=== PATIENT | male | born 1945 | race Caucasian/White ===

== ENCOUNTER 2018-10-10 12:31 | Outpatient (CLI) | payer MEDICARE ==
[~2018-10-10 12:31] MED LIST: AMIO200T54 PO; BENZ1TAB7 PO; CARV6.252 PO; EPIN0.3P17 SQ; IBUP-1984 PO; LITH450T2 PO; LORA1TAB PO; LOSA25TA96 PO; MAGN250T29 PO; PER5325T PO; PIMO2TAB3 PO; POTA99TA25 PO; RIVA20TA PO; SIMV20TA5 PO; TRAZ-219 PO; VENL150C58 PO; VIT1CAPS4 PO
== END 2018-10-10 23:59 | disposition home or self-care (01) ==
LOC: CARD DIAG 12:31
PROVIDERS: ATTEND Internal Medicine Cardiovascular Disease
DX: I08.3 Combined rheumatic disorders of mitral, aortic and tricuspid valves (principal); I48.91 Unspecified atrial fibrillation; I42.9 Cardiomyopathy, unspecified; I11.0 Hypertensive heart disease with heart failure; I50.9 Heart failure, unspecified; J44.9 Chronic obstructive pulmonary disease, unspecified; Z87.891 Personal history of nicotine dependence
CPT/HCPCS: 93306

== ENCOUNTER 2018-11-15 06:44 | Day surgery (SDC) | payer MEDICARE, OTHER ==
[2018-11-14 10:34] LABS: BASOPHILS # (AUTO) 0.1 X10'3 (0-0.2); BASOPHILS % (AUTO) 0.7 % (0-1); EOSINOPHILS # (AUTO) 0.2 X10'3 (0-0.9); EOSINOPHILS % (AUTO) 2.2 % (0-6); HEMATOCRIT 39.6 % (42.0-52.0); HEMOGLOBIN 12.9 g/dl (14.0-17.9); LYMPHOCYTES # (AUTO) 1.8 X10'3 (1.1-4.8); LYMPHOCYTES % (AUTO) 20.7 % (21-51); MEAN CORPUSCULAR HEMOGLOBIN 29.3 PG (27.0-31.0); MEAN CORPUSCULAR HGB CONC 32.6 g/dL (33.0-36.5); MEAN CORPUSCULAR VOLUME 90.1 FL (78-98); MEAN PLATELET VOLUME 6.2 FL (7.4-10.4); MONOCYTES # (AUTO) 0.8 X10'3 (0-0.9); MONOCYTES % (AUTO) 8.9 % (2-12); NEUTROPHILS # (AUTO) 5.9 X10'3 (1.8-7.7); NEUTROPHILS % (AUTO) 67.5 % (42-75); PLATELET COUNT 364 X10'3 (140-440); RED CELL DISTRIBUTION WIDTH 14.3 % (11.5-14.5); WHITE BLOOD COUNT 8.7 X10'3 (4.5-11.0)
[2018-11-14 10:40] LABS: ALBUMIN 3.9 G/DL (3.4-5.0); ANION GAP 8 (8-16); CALCIUM 9.5 MG/DL (8.5-10.1); CHLORIDE 100 MMOL/L (99-107); CREATININE 1.01 MG/DL (0.60-1.10); POTASSIUM 4.6 MMOL/L (3.5-5.1); SODIUM 135 MMOL/L (135-145); TOTAL CARBON DIOXIDE 26.8 MMOL/L (24-32); eGFR 73 ML/MIN
[2018-11-14 10:43] LABS: BLOOD UREA NITROGEN 14 MG/DL (7-18); BUN/CREATININE RATIO 13.9 (5.4-32.0); GLUCOSE 102 MG/DL (70-104)
[2018-11-14 10:44] LABS: INR 1.2 INR; PROTHROMBIN TIME 12.5 SECONDS (9.0-12.0)
[~2018-11-15] VITALS: Ht 188 cm; Wt 125.1 kg
[2018-11-15] VITALS (8 sets, daily range): BP systolic 95–126; BP diastolic 47–94
[2018-11-15] MEDS ORDERED: MIDAZolam 5mg/ml 2ml vial IV ONE (07:05)
[2018-11-15] MEDS ORDERED: normal saline 1000ml 1,000 ML IV SCH (07:05)
[2018-11-15] MEDS ORDERED: LORazepam 0.5 MG tablet PO ONE (07:05)
[2018-11-15] MEDS ORDERED: atropine 0.1mg/ml 10ml syringe IV ONE (07:05)
[2018-11-15] MEDS ORDERED: amiodarone in dextrose, iso-osm 150mg/100ml bag IV ONE (07:05)
[2018-11-15] MEDS ORDERED: CARV3.122 PO (07:17)
[2018-11-15] MEDS ORDERED: HALO50AM2 INJ (07:17)
[2018-11-15] MEDS ORDERED: PANT20TA2 PO (07:17)
[2018-11-15] MEDS ORDERED: fentaNYL/PF 50MCG/1 ML 2ML syringe IV ONE (07:20)
--- NOTE | 2018-11-15 07:48 | NUR ---
CORRECTION PT IS ON 2.0L NC WITH CO2 38, RT, LINEA AT BEDSIDE.
== END 2018-11-15 09:25 | disposition home or self-care (01) ==
LOC: SSTAY O 06:44
PROVIDERS: ATTEND Internal Medicine Cardiovascular Disease
DX: I48.92 Unspecified atrial flutter (principal); E78.5 Hyperlipidemia, unspecified; I11.0 Hypertensive heart disease with heart failure; I50.9 Heart failure, unspecified; I42.9 Cardiomyopathy, unspecified; F41.9 Anxiety disorder, unspecified; F32.9 Major depressive disorder, single episode, unspecified; I48.91 Unspecified atrial fibrillation; K21.9 Gastro-esophageal reflux disease without esophagitis; Z88.6 Allergy status to analgesic agent; Z88.8 Allergy status to other drugs, medicaments and biological substances
CPT/HCPCS: 36415; 80048; 85025; 85610; 92960; 93005; J0282; J0461; J2250; J3010; J7030

== ENCOUNTER 2019-03-29 16:23 | Emergency (ER) | payer MEDICARE, OTHER ==
[~2019-03-29] VITALS: Ht 188 cm; Wt 120.0 kg
[~2019-03-29 16:23] MED LIST changes: +AMIO200T40 PO; -AMIO200T54 PO; +ATOR20TA66 PO; +BUDE10.22 INH; +CARV3.12 PO; -CARV6.252 PO; -EPIN0.3P17 SQ; +ESCI10TA PO; +GABA-530 PO; +GABA-532 PO; +HALO1TAB PO; -IBUP-1984 PO; -LITH450T2 PO; -LORA1TAB PO; -LOSA25TA96 PO; -MAGN250T29 PO; +PANT-47 PO; -PER5325T PO; -PIMO2TAB3 PO; -POTA99TA25 PO; -SIMV20TA5 PO; +VENL150C2 PO; -VENL150C58 PO; -VIT1CAPS4 PO
[2019-03-29] MEDS ORDERED: acetaminophen 325mg tablet PO STA (16:34)
[2019-03-29] MEDS ORDERED: normal saline 1000ML IV soln IV ONE (16:35)
[2019-03-29 17:18] LABS: BASOPHILS # (AUTO) 0.2 X10'3 (0-0.2); BASOPHILS % (AUTO) 1.3 % (0-1); EOSINOPHILS % (AUTO) 0.2 % (0-6); HEMATOCRIT 41.1 % (42.0-52.0); HEMOGLOBIN 13.9 g/dl (14.0-17.9); LYMPHOCYTES # (AUTO) 1.3 X10'3 (1.1-4.8); LYMPHOCYTES % (AUTO) 10.6 % (21-51); MEAN CORPUSCULAR HEMOGLOBIN 31.3 PG (27.0-31.0); MEAN CORPUSCULAR HGB CONC 33.8 g/dL (33.0-36.5); MEAN CORPUSCULAR VOLUME 92.5 FL (78-98); MEAN PLATELET VOLUME 6.2 FL (7.4-10.4); MONOCYTES # (AUTO) 0.7 X10'3 (0-0.9); MONOCYTES % (AUTO) 5.8 % (2-12); NEUTROPHILS # (AUTO) 9.8 X10'3 (1.8-7.7); NEUTROPHILS % (AUTO) 82.1 % (42-75); PLATELET COUNT 392 X10'3 (140-440); RED BLOOD COUNT 4.44 X10'6 (4.70-6.10); RED CELL DISTRIBUTION WIDTH 13.5 % (11.5-14.5); WHITE BLOOD COUNT 11.9 X10'3 (4.5-11.0)
[2019-03-29 17:29] LABS: ALANINE AMINOTRANSFERASE 24 U/L (12-78); ALBUMIN 4.2 G/DL (3.4-5.0); ALKALINE PHOSPHATASE 98 IU/L (46-116); ANION GAP 13 (8-16); CALCIUM 9.9 MG/DL (8.5-10.1); CHLORIDE 96 MMOL/L (99-107); CREATININE 1.27 MG/DL (0.60-1.10); POTASSIUM 4.7 MMOL/L (3.5-5.1); SODIUM 133 MMOL/L (135-145); TOTAL CARBON DIOXIDE 24.1 MMOL/L (24-32); eGFR 56 ML/MIN
[2019-03-29 17:30] LABS: ASPARTATE AMINO TRANSFERASE 11 U/L (10-37); BILIRUBIN,TOTAL 0.5 MG/DL (0.1-1.0); BLOOD UREA NITROGEN 15 MG/DL (7-18); BUN/CREATININE RATIO 11.8 (5.4-32.0); GLUCOSE 116 MG/DL (70-104); TOTAL PROTEIN 8.5 G/DL (6.4-8.2)
[2019-03-29 17:31] LABS: LACTIC SEPSIS 1.4 MMOL/L (0.4-2.0)
[2019-03-29] MEDS ORDERED: LIDOcaine 2% 10ml TOPICAL JELLY (Urojet) MM ONE (17:55)
[2019-03-29 18:31] LABS: CLARITY,URINE CLEAR (Clear); COLOR,URINE YELLOW (Yellow); GLUCOSE, URINE NEGATIVE (Neg); KETONES,URINE NEGATIVE (Neg); LEUKOCYTE ESTERASE ,URINE NEGATIVE (Neg); NITRITES, URINE NEGATIVE (Neg); OCCULT BLOOD,URINE NEGATIVE (Neg); PROTEIN,URINE NEGATIVE (Neg); UROBILINOGEN,URINE 0.2 E.U/dL (0.2-1.0)
[2019-03-29 18:37] LABS: UA COLLECTION TYPE STRAIGHT CATH
--- NOTE | 2019-03-29 19:30 | NUR ---
Patient gait tested and ambulated 50+ feet before requesting to sit down. Patient did not appear short of breath with this stop. When asked why he needed to sit, he states, "I don't know." Patient rested and then ambulated back to his room. He walks with a steady gait and requires minimal, if any, assistance.
--- NOTE | 2019-03-29 19:31 | NUR ---
Spo2 100% at the end of his gait test.
[2019-03-29 20:04] VITALS: BP 151/88
== END 2019-03-29 20:26 | disposition home or self-care (01) ==
LOC: ER 16:23
DX: E51.2 Wernicke's encephalopathy (principal); R41.0 Disorientation, unspecified; R11.2 Nausea with vomiting, unspecified; F03.90 Unspecified dementia, unspecified severity, without behavioral disturbance, psychotic disturbance, mood disturbance, and anxiety; I48.91 Unspecified atrial fibrillation; I10 Essential (primary) hypertension; J44.9 Chronic obstructive pulmonary disease, unspecified; Z95.0 Presence of cardiac pacemaker; Z88.8 Allergy status to other drugs, medicaments and biological substances; Z88.5 Allergy status to narcotic agent; Z79.899 Other long term (current) drug therapy
CPT/HCPCS: 36415; 70450; 71045; 74176; 80053; 81003; 82140; 83605; 84145; 85025; 85610; 87040; 93005; 99284; P9612

== ENCOUNTER 2019-07-11 06:25 | Day surgery (SDC) | payer MEDICARE ==
[2019-07-10 13:21] LABS: BASOPHILS % (AUTO) 0.5 % (0-1); EOSINOPHILS # (AUTO) 0.2 X10'3 (0-0.9); HEMATOCRIT 33.6 % (42.0-52.0); HEMOGLOBIN 11.6 g/dl (14.0-17.9); LYMPHOCYTES # (AUTO) 1.8 X10'3 (1.1-4.8); LYMPHOCYTES % (AUTO) 20.2 % (21-51); MEAN CORPUSCULAR HEMOGLOBIN 32.3 PG (27.0-31.0); MEAN CORPUSCULAR HGB CONC 34.6 g/dL (33.0-36.5); MEAN CORPUSCULAR VOLUME 93.4 FL (78-98); MEAN PLATELET VOLUME 6.1 FL (7.4-10.4); MONOCYTES # (AUTO) 1.1 X10'3 (0-0.9); MONOCYTES % (AUTO) 11.7 % (2-12); NEUTROPHILS % (AUTO) 65.6 % (42-75); PLATELET COUNT 370 X10'3 (140-440); WHITE BLOOD COUNT 9.1 X10'3 (4.5-11.0)
[2019-07-10 13:24] LABS: ALBUMIN 3.9 G/DL (3.4-5.0); ANION GAP 10 (8-16); CHLORIDE 92 MMOL/L (99-107); CREATININE 1.24 MG/DL (0.60-1.10); SODIUM 126 MMOL/L (135-145); TOTAL CARBON DIOXIDE 24.4 MMOL/L (24-32); eGFR 57 ML/MIN
[2019-07-10 13:27] LABS: BLOOD UREA NITROGEN 18 MG/DL (7-18); BUN/CREATININE RATIO 14.5 (5.4-32.0); CALCIUM 9.9 MG/DL (8.5-10.1); GLUCOSE 102 MG/DL (70-104)
[2019-07-11] VITALS (14 sets, daily range): BP systolic 100–131; BP diastolic 69–94
[~2019-07-11] VITALS: Ht 188 cm; Wt 122.4 kg
[~2019-07-11 06:25] MED LIST changes: -AMIO200T40 PO; +AMIO200T61 PO
[2019-07-11] MEDS ORDERED: amiodarone 150mg/dext, iso-os 100 ML IV ONE (06:50)
[2019-07-11] MEDS ORDERED: normal saline 1000ml 1,000 ML IV SCH (06:50)
[2019-07-11] MEDS ORDERED: diphenhydrAMINE 25mg capsule PO ONE (06:50)
[2019-07-11] MEDS ORDERED: morphine 10mg/ml inj. IV ONE (06:55)
[2019-07-11] MEDS ORDERED: MIDAZolam 5mg/ml 2ml vial IV ONE (06:55)
[2019-07-11] MEDS ORDERED: LORazepam 0.5 MG tablet PO ONE (06:55)
[2019-07-11] MEDS ORDERED: atropine 0.1mg/ml 10ml syringe IV ONE (06:55)
[2019-07-11] MEDS ORDERED: EPIN0.3P3 (07:06)
[2019-07-11] MEDS ORDERED: PANT20TA2 PO (07:06)
[2019-07-11] MEDS ORDERED: HALO5AMP2 PO (07:06)
[2019-07-11] MEDS ORDERED: LISI2.5T2 PO (07:06)
[2019-07-11] MEDS ORDERED: SPIR25TA5 PO (07:06)
[2019-07-11] MEDS ORDERED: fentaNYL/PF 50MCG/1 ML 2ML syringe IV ONE (07:10)
== END 2019-07-11 10:15 | disposition home or self-care (01) ==
LOC: SSTAY O 06:25
PROVIDERS: ATTEND Internal Medicine Cardiovascular Disease
DX: I48.19 Other persistent atrial fibrillation (principal); E78.5 Hyperlipidemia, unspecified; I11.0 Hypertensive heart disease with heart failure; I50.9 Heart failure, unspecified; G47.30 Sleep apnea, unspecified; Z79.899 Other long term (current) drug therapy
CPT/HCPCS: 36415; 80048; 85025; 85610; 92960; 93005; J0282; J0461; J2250; J3010; Q0163; J7030

== ENCOUNTER 2019-07-12 09:55 | Emergency (ER) | payer MEDICARE ==
[~2019-07-12] VITALS: Ht 188 cm; Wt 90.8 kg
[~2019-07-12 09:55] MED LIST changes: -ATOR20TA66 PO; -BUDE10.22 INH; +EPIN0.3P3; -GABA-530 PO; -GABA-532 PO; -HALO1TAB PO; +HALO5AMP2 PO; +LISI2.5T2 PO; +PANT20TA2 PO; +SPIR25TA5 PO; -TRAZ-219 PO
[2019-07-12 11:19] LABS: BASOPHILS # (AUTO) 0.1 X10'3 (0-0.2); BASOPHILS % (AUTO) 0.6 % (0-1); EOSINOPHILS # (AUTO) 0.2 X10'3 (0-0.9); HEMATOCRIT 34.3 % (42.0-52.0); HEMOGLOBIN 11.7 g/dl (14.0-17.9); LYMPHOCYTES # (AUTO) 1.3 X10'3 (1.1-4.8); LYMPHOCYTES % (AUTO) 14.3 % (21-51); MEAN CORPUSCULAR HGB CONC 34.1 g/dL (33.0-36.5); MEAN CORPUSCULAR VOLUME 93.7 FL (78-98); MONOCYTES # (AUTO) 1.1 X10'3 (0-0.9); NEUTROPHILS # (AUTO) 6.5 X10'3 (1.8-7.7); NEUTROPHILS % (AUTO) 71.1 % (42-75); PLATELET COUNT 367 X10'3 (140-440); RED BLOOD COUNT 3.66 X10'6 (4.70-6.10); RED CELL DISTRIBUTION WIDTH 14.4 % (11.5-14.5); WHITE BLOOD COUNT 9.2 X10'3 (4.5-11.0)
[2019-07-12 11:27] LABS: ALANINE AMINOTRANSFERASE 19 U/L (12-78); ALBUMIN 3.9 G/DL (3.4-5.0); ALBUMIN/GLOBULIN RATIO 0.9 (1.1-1.5); ALKALINE PHOSPHATASE 87 IU/L (46-116); ANION GAP 8 (8-16); ASPARTATE AMINO TRANSFERASE 25 U/L (10-37); BILIRUBIN,TOTAL 0.4 MG/DL (0.1-1.0); BLOOD UREA NITROGEN 18 MG/DL (7-18); CALCIUM 9.5 MG/DL (8.5-10.1); CHLORIDE 95 MMOL/L (99-107); CREATININE 1.29 MG/DL (0.60-1.10); PARTIAL THROMBOPLASTIN TIME 39 SECONDS (22-32); POTASSIUM 5.4 MMOL/L (3.5-5.1); SODIUM 130 MMOL/L (135-145); TOTAL CARBON DIOXIDE 26.7 MMOL/L (24-32); TOTAL PROTEIN 8.1 G/DL (6.4-8.2); eGFR 55 ML/MIN
[2019-07-12 11:34] LABS: MAGNESIUM 1.9 MG/DL (1.5-2.4)
[2019-07-12 11:38] LABS: GLUCOSE 101 MG/DL (70-104)
--- NOTE | 2019-07-12 11:46 | NUR ---
pacemaker interrogated, waiting results.
[2019-07-12 12:18] VITALS: BP 147/115
== END 2019-07-12 12:27 | disposition home or self-care (01) ==
LOC: ER 09:56
DX: I48.91 Unspecified atrial fibrillation (principal); I10 Essential (primary) hypertension; F03.90 Unspecified dementia, unspecified severity, without behavioral disturbance, psychotic disturbance, mood disturbance, and anxiety; Z87.891 Personal history of nicotine dependence; Z95.0 Presence of cardiac pacemaker; Z88.5 Allergy status to narcotic agent; Z88.8 Allergy status to other drugs, medicaments and biological substances; Z79.899 Other long term (current) drug therapy
CPT/HCPCS: 36415; 71045; 80053; 83735; 83880; 84484; 85025; 85610; 85730; 93005; 99284

== ENCOUNTER 2019-09-28 09:10 | Emergency (ER) | payer MEDICARE ==
[~2019-09-28] VITALS: Ht 188 cm; Wt 127.0 kg
--- NOTE | 2019-09-28 09:27 | NUR ---
Patient resting in bed, denies CP, N/V. Patient on 2L NC from EMS. Patient has intermitten cough, non priductive. [facility] Blood collected and sent to lab. Patient don gown and on pvc monitor.
[2019-09-28 09:38] LABS: BASOPHILS % (AUTO) 0.7 % (0-1); EOSINOPHILS # (AUTO) 0.1 X10'3 (0-0.9); EOSINOPHILS % (AUTO) 1.8 % (0-6); HEMATOCRIT 36.2 % (42.0-52.0); HEMOGLOBIN 12.2 g/dl (14.0-17.9); LYMPHOCYTES # (AUTO) 1.1 X10'3 (1.1-4.8); LYMPHOCYTES % (AUTO) 16.8 % (21-51); MEAN CORPUSCULAR HEMOGLOBIN 31.5 PG (27.0-31.0); MEAN CORPUSCULAR HGB CONC 33.9 g/dL (33.0-36.5); MEAN CORPUSCULAR VOLUME 93.1 FL (78-98); MEAN PLATELET VOLUME 6.1 FL (7.4-10.4); MONOCYTES # (AUTO) 0.9 X10'3 (0-0.9); MONOCYTES % (AUTO) 14.4 % (2-12); NEUTROPHILS # (AUTO) 4.2 X10'3 (1.8-7.7); NEUTROPHILS % (AUTO) 66.3 % (42-75); PLATELET COUNT 264 X10'3 (140-440); RED BLOOD COUNT 3.88 X10'6 (4.70-6.10); RED CELL DISTRIBUTION WIDTH 13.3 % (11.5-14.5); WHITE BLOOD COUNT 6.3 X10'3 (4.5-11.0)
[2019-09-28 09:52] LABS: ALANINE AMINOTRANSFERASE 24 U/L (12-78); ALBUMIN 3.7 G/DL (3.4-5.0); ALKALINE PHOSPHATASE 91 IU/L (46-116); ANION GAP 8 (8-16); ASPARTATE AMINO TRANSFERASE 20 U/L (10-37); BILIRUBIN,TOTAL 0.2 MG/DL (0.1-1.0); BLOOD UREA NITROGEN 19 MG/DL (7-18); BUN/CREATININE RATIO 16.1 (5.4-32.0); CALCIUM 8.6 MG/DL (8.5-10.1); CHLORIDE 101 MMOL/L (99-107); CREATININE 1.18 MG/DL (0.60-1.10); POTASSIUM 5.4 MMOL/L (3.5-5.1); SODIUM 135 MMOL/L (135-145); TOTAL CARBON DIOXIDE 25.7 MMOL/L (24-32); TOTAL PROTEIN 7.3 G/DL (6.4-8.2); eGFR 61 ML/MIN
[2019-09-28 09:53] LABS: GLUCOSE 102 MG/DL (70-104)
[2019-09-28] MEDS ORDERED: albuterol 2.5 MG/3 ML nebule NEB ONE (10:10)
[2019-09-28] MEDS ORDERED: methylPREDNISolone sod succ 125mg/2ml vial IV ONE (10:10)
--- NOTE | 2019-09-28 10:18 | NUR ---
PA Belle removed oxygen NC, patient maintaining SPO2 96%.
--- NOTE | 2019-09-28 10:18 | NUR ---
arrived and at bedside. RT at bedside.
--- NOTE | 2019-09-28 11:19 | NUR ---
Patient reports breathing improved from breathing treatment and medication. Patient sitting in bed comfortable. Denies any CP or N/V at this time.
[2019-09-28] MEDS ORDERED: ipratropium/albuterol 3ml nebule NEB ONE (11:20)
--- NOTE | 2019-09-28 11:33 | NUR ---
RT at bedside.
[2019-09-28] MEDS ORDERED: PRED20TA PO (12:11)
[2019-09-28] MEDS ORDERED: AZIT-63 PO (12:11)
[2019-09-28] MEDS ORDERED: TAM75C PO (12:12)
[2019-09-28] MEDS ORDERED: azithromycin 250mg tablet PO ONE (12:15)
[2019-09-28 12:27] VITALS: BP 129/68
== END 2019-09-28 12:28 | disposition home or self-care (01) ==
LOC: ER 09:10
DX: J44.1 Chronic obstructive pulmonary disease with (acute) exacerbation (principal); I48.91 Unspecified atrial fibrillation; I10 Essential (primary) hypertension; F03.90 Unspecified dementia, unspecified severity, without behavioral disturbance, psychotic disturbance, mood disturbance, and anxiety; Z88.8 Allergy status to other drugs, medicaments and biological substances; Z88.6 Allergy status to analgesic agent; Z79.2 Long term (current) use of antibiotics; Z79.899 Other long term (current) drug therapy; Z95.0 Presence of cardiac pacemaker
CPT/HCPCS: 36415; 71045; 80053; 83880; 84484; 85025; 87502; 87503; 93005; 94640; 96374; 99284; J2930; 94760

== ENCOUNTER 2019-10-26 09:53 | Inpatient (IN) | payer MEDICARE, OTHER ==
[~2019-10-26] VITALS: Ht 188 cm; Wt 125.0 kg
[~2019-10-26 09:53] MED LIST changes: -EPIN0.3P3; +EPIN0.3P3 IM; +PRED20TA PO
[2019-10-26 10:27] LABS: BASOPHILS # (AUTO) 0.1 X10'3 (0-0.2); BASOPHILS % (AUTO) 1.2 % (0-1); EOSINOPHILS # (AUTO) 0.1 X10'3 (0-0.9); EOSINOPHILS % (AUTO) 1.8 % (0-6); HEMATOCRIT 38.7 % (42.0-52.0); HEMOGLOBIN 13.4 g/dl (14.0-17.9); LYMPHOCYTES # (AUTO) 1.9 X10'3 (1.1-4.8); LYMPHOCYTES % (AUTO) 27.5 % (21-51); MEAN CORPUSCULAR HGB CONC 34.5 g/dL (33.0-36.5); MEAN CORPUSCULAR VOLUME 92.8 FL (78-98); MEAN PLATELET VOLUME 5.9 FL (7.4-10.4); MONOCYTES # (AUTO) 0.9 X10'3 (0-0.9); MONOCYTES % (AUTO) 13.1 % (2-12); NEUTROPHILS # (AUTO) 3.8 X10'3 (1.8-7.7); NEUTROPHILS % (AUTO) 56.4 % (42-75); PLATELET COUNT 490 X10'3 (140-440); RED BLOOD COUNT 4.18 X10'6 (4.70-6.10); RED CELL DISTRIBUTION WIDTH 13.6 % (11.5-14.5); WHITE BLOOD COUNT 6.7 X10'3 (4.5-11.0)
[2019-10-26 10:39] LABS: ALANINE AMINOTRANSFERASE 21 U/L (12-78); ALBUMIN 4.1 G/DL (3.4-5.0); ALKALINE PHOSPHATASE 98 IU/L (46-116); ANION GAP 8 (8-16); CALCIUM 9.7 MG/DL (8.5-10.1); CHLORIDE 100 MMOL/L (99-107); POTASSIUM 5.3 MMOL/L (3.5-5.1); SODIUM 135 MMOL/L (135-145); TOTAL CARBON DIOXIDE 26.8 MMOL/L (24-32); eGFR 60 ML/MIN
[2019-10-26 10:40] LABS: ASPARTATE AMINO TRANSFERASE 18 U/L (10-37); BILIRUBIN,TOTAL 0.3 MG/DL (0.1-1.0); BLOOD UREA NITROGEN 18 MG/DL (7-18); GLUCOSE 98 MG/DL (70-104); TOTAL PROTEIN 8.1 G/DL (6.4-8.2)
[2019-10-26] MEDS ORDERED: regadenoson 0.4mg/5ml syringe IV PRN (12:10)
[2019-10-26] MEDS ORDERED: metoprolol tartrate 1mg/ml inj IV PRN (12:10)
[2019-10-26] MEDS ORDERED: mag hydrox/Alum hydrox/simeth 30ml oral suspension PO PRN (12:10)
[2019-10-26] MEDS ORDERED: bisacodyl 10mg suppository rectal RC PRN (12:10)
[2019-10-26] MEDS ORDERED: magnesium 4gm in 100ml NS 100 ML IV PRN (12:10)
[2019-10-26] MEDS ORDERED: magnesium 2GM in 50ml NS 50 ML IV PRN (12:10)
[2019-10-26] MEDS ORDERED: nitroGLYCERIN 0.4mg SUBLingual tab SL PRN ×2 (12:10)
[2019-10-26] MEDS ORDERED: acetaminophen 325mg tablet PO PRN ×2 (12:10)
[2019-10-26] MEDS ORDERED: magnesium Cl slow-release 64mg tablet PO PRN (12:10)
[2019-10-26] MEDS ORDERED: magnesium hydroxide 30ml (MOM) UD suspension PO PRN (12:10)
[2019-10-26] MEDS ORDERED: aminophylline 250mg/10ml inj. IV PRN (12:10)
[2019-10-26] MEDS ORDERED: potassium CL 10mEq/100ml bag 100 ML IV PRN ×2 (12:10)
[2019-10-26] MEDS ORDERED: metoclopramide 5 mg/ml inj IV PRN (12:10)
[2019-10-26] MEDS ORDERED: ondansetron/PF 4mg/2ml inj IV PRN (12:10)
[2019-10-26] MEDS ORDERED: potassium Cl 20 mEq SR tablet PO PRN ×2 (12:10)
--- NOTE | 2019-10-26 12:25 | NUR ---
Rosana mcnair in ED - 10/26/19 at 1226 by LYNETTE [facility] called and stated they were unable to accomplish stress test today. Tech stated they will accomplish test tomorrow morning.
--- NOTE | 2019-10-26 12:27 | NUR ---
Nuclear medicine called and stated they were unable to accomplish stress test today. Tech stated they will accomplish test tomorrow morning.
[2019-10-26] MEDS: normal saline 1000ml 1,000 ML IV SCH ×2 (12:50→23:19)
--- NOTE | 2019-10-26 14:00 | NUR ---
Patient in room PCU 3017 admitted from ED. I have received report from Jennifer RN and had the opportunity to ask questions and assume patient care. Pt is brought up via michelle w/ 1 RN and transferred to bed, oriented to room and unit, tele monitor placed and 2 skin rn check completed, will continue to monitor.
[2019-10-26] MEDS ORDERED: HYDR-3965 PO (14:52)
[2019-10-26] MEDS ORDERED: HALO1TAB PO (14:52)
[2019-10-26] MEDS ORDERED: CYAN-51 PO (14:52)
[2019-10-26] MEDS ORDERED: TRAZ-256 PO (14:52)
[2019-10-26] MEDS ORDERED: FINA5TAB42 PO (14:52)
[2019-10-26] MEDS ORDERED: PSYL0.5210 PO (14:52)
[2019-10-26] MEDS ORDERED: DOCU250C71 PO (14:52)
[2019-10-26] MEDS ORDERED: CARV6.252 PO (14:52)
[2019-10-26] MEDS ORDERED: SENN-162 PO (14:52)
[2019-10-26] MEDS ORDERED: ALBU18HF2 INH (14:52)
[2019-10-26] MEDS ORDERED: CHOL100025 PO (14:52)
[2019-10-26] MEDS ORDERED: PANT-47 PO (14:52)
[2019-10-26] MEDS ORDERED: BUDE10.22 INH (14:52)
[2019-10-26] MEDS ORDERED: ATOR10TA70 PO (14:52)
[2019-10-26] MEDS ORDERED: GABA-532 PO (14:52)
[2019-10-26] MEDS ORDERED: TERA2CAP4 PO (14:54)
[2019-10-26 15:00] VITALS: BP 107/63
[2019-10-26] MEDS ORDERED: benzonatate 100mg capsule PO PRN (16:15)
[2019-10-26] MEDS: loratadine 10mg tablet PO SCH (16:22)
[2019-10-26] MEDS: rivaroxaban 20mg tablet PO SCH (17:14)
[2019-10-26 18:00] VITALS: BP 118/67
--- NOTE | 2019-10-26 18:00 | NUR ---
Patient in room PCU 3017. I have received report from REINIER Rodríguez and had the opportunity to ask questions and assume patient care.
--- NOTE | 2019-10-26 18:14 | NUR ---
Problems reprioritized. Patient report given, questions answered & plan of care reviewed with Sara HILLS.
[2019-10-26] MEDS: K and/or MAG REPLACEMENT MC SCH (19:41)
[2019-10-26] MEDS: gabapentin 300mg capsule PO SCH (20:48)
[2019-10-26] MEDS: carvedilol 6.25mg tablet PO SCH (20:48)
[2019-10-26] MEDS: haloperidol 1mg tablet PO SCH (20:48)
[2019-10-26] MEDS: benztropine 1mg tablet PO SCH (20:49)
[2019-10-26] MEDS: budesonide 0.5mg/2ml UD nebule IH SCH (21:07)
[2019-10-26] MEDS: albuterol 2.5 MG/3 ML nebule NEB SCH (21:07)
[2019-10-26 22:00] VITALS: BP 103/60
[2019-10-26] MEDS: temazepam 15mg capsule PO PRN (23:26)
--- NOTE | 2019-10-26 23:39 | NUR ---
Patient had complaints of sharp left sided chest pain. Nitro SL x1 was given, after 5 minutes the pain subsided and a second Nitro was not needed. EKG showed V paced, and placed in the chart.
[2019-10-27 02:00] VITALS: BP 87/50
[2019-10-27] MEDS: albuterol 2.5 MG/3 ML nebule NEB SCH ×4 (02:31→20:43)
[2019-10-27] MEDS: HYDROcodone/acetaminophen 5mg/325mg tablet PO PRN ×2 (05:26→17:23)
[2019-10-27 06:00] VITALS: BP 118/77
--- NOTE | 2019-10-27 06:23 | NUR ---
Problems reprioritized. Patient report given, questions answered & plan of care reviewed with REINIER Rodríguez.
[2019-10-27 06:33] LABS: HEMATOCRIT 34.5 % (42.0-52.0); HEMOGLOBIN 11.8 g/dl (14.0-17.9); MEAN CORPUSCULAR HEMOGLOBIN 31.5 PG (27.0-31.0); MEAN CORPUSCULAR HGB CONC 34.3 g/dL (33.0-36.5); MEAN CORPUSCULAR VOLUME 91.7 FL (78-98); MEAN PLATELET VOLUME 6.1 FL (7.4-10.4); PLATELET COUNT 416 X10'3 (140-440); RED BLOOD COUNT 3.76 X10'6 (4.70-6.10); RED CELL DISTRIBUTION WIDTH 13.6 % (11.5-14.5); WHITE BLOOD COUNT 7.1 X10'3 (4.5-11.0)
[2019-10-27 06:44] LABS: ALBUMIN 3.6 G/DL (3.4-5.0); ANION GAP 7 (8-16); BLOOD UREA NITROGEN 22 MG/DL (7-18); BUN/CREATININE RATIO 19.5 (5.4-32.0); CALCIUM 9.3 MG/DL (8.5-10.1); CHLORIDE 101 MMOL/L (99-107); CHOL/HDL RATIO 2.6 (0.00-4.99); CHOLESTEROL 139 MG/DL (0-200); CREATININE 1.13 MG/DL (0.60-1.10); HDL CHOLESTEROL 53 MG/DL (35-60); LDL CHOLESTEROL 64 MG/DL (50-100); MAGNESIUM 1.9 MG/DL (1.5-2.4); POTASSIUM 4.8 MMOL/L (3.5-5.1); SODIUM 133 MMOL/L (135-145); TOTAL CARBON DIOXIDE 25.3 MMOL/L (24-32); TRIGLYCERIDES 121 MG/DL (20-135); eGFR 64 ML/MIN
[2019-10-27 06:46] LABS: GLUCOSE 107 MG/DL (70-104)
--- NOTE | 2019-10-27 06:54 | NUR ---
Patient in room PCU 3017. I have received report from Sara HILLS and had the opportunity to ask questions and assume patient care.
[2019-10-27] MEDS: ESCITALOPRAM OXALATE 5 MG TABLET PO SCH (07:54)
[2019-10-27] MEDS: venlafaxine XR 75mg capsule (Q24H) PO SCH (07:54)
[2019-10-27] MEDS: spironolactone 25 MG tablet PO SCH (07:55)
[2019-10-27] MEDS: lisinopril 2.5mg tablet PO SCH (07:55)
[2019-10-27] MEDS: pantoprazole 40mg Tablet.DR PO SCH (07:55)
[2019-10-27] MEDS: docusate sod 250mg capsule PO SCH (07:55)
[2019-10-27] MEDS: loratadine 10mg tablet PO SCH (07:55)
[2019-10-27] MEDS: carvedilol 6.25mg tablet PO SCH ×2 (07:56→19:54)
[2019-10-27] MEDS: haloperidol 1mg tablet PO SCH ×3 (07:56→20:04)
[2019-10-27] MEDS: atorvastatin 10mg tablet PO SCH (07:56)
[2019-10-27] MEDS: amiodarone 200mg tablet PO SCH (07:56)
[2019-10-27] MEDS: K and/or MAG REPLACEMENT MC SCH ×2 (08:00→20:00)
[2019-10-27] MEDS: benztropine 1mg tablet PO SCH ×2 (08:00→19:54)
[2019-10-27] MEDS: budesonide 0.5mg/2ml UD nebule IH SCH ×2 (08:50→20:43)
--- NOTE | 2019-10-27 09:26 | NUR ---
PAGER ID: [phone] MESSAGE: [id number] Neno Deras: TRUPTI patient will be rescheduled for stress test for tomorrow, patient had coffee @ 0400 this morning. thanks Cecilia
[2019-10-27] MEDS: normal saline 1000ml 1,000 ML IV SCH ×4 (10:12→19:54)
[2019-10-27 11:00] VITALS: BP 107/73
[2019-10-27 15:00] VITALS: BP 101/61
[2019-10-27] MEDS: rivaroxaban 20mg tablet PO SCH (17:23)
[2019-10-27 18:00] VITALS: BP 124/86
--- NOTE | 2019-10-27 18:35 | NUR ---
Problems reprioritized. Patient report given, questions answered & plan of care reviewed with Sara HILLS.
--- NOTE | 2019-10-27 18:59 | NUR ---
Patient in room PCU 3017. I have received report from REINIER TANG and had the opportunity to ask questions and assume patient care.
[2019-10-27] MEDS: temazepam 15mg capsule PO PRN (19:54)
[2019-10-27] MEDS: gabapentin 300mg capsule PO SCH (20:04)
[2019-10-27 22:00] VITALS: BP 114/77
[2019-10-28] VITALS (15 sets, daily range): BP systolic 88–134; BP diastolic 50–89
[2019-10-28] MEDS: albuterol 2.5 MG/3 ML nebule NEB SCH ×4 (03:23→20:32)
[2019-10-28] MEDS: normal saline 1000ml 1,000 ML IV SCH (06:00)
--- NOTE | 2019-10-28 06:11 | NUR ---
Patient in room PCU 3017. I have received report from Sara HILLS and had the opportunity to ask questions and assume patient care.
--- NOTE | 2019-10-28 06:17 | NUR ---
Problems reprioritized. Patient report given, questions answered & plan of care reviewed with REINIER Rodríguez.
[2019-10-28 06:35] LABS: HEMATOCRIT 34.2 % (42.0-52.0); HEMOGLOBIN 11.7 g/dl (14.0-17.9); MEAN CORPUSCULAR HEMOGLOBIN 31.4 PG (27.0-31.0); MEAN CORPUSCULAR HGB CONC 34.2 g/dL (33.0-36.5); MEAN CORPUSCULAR VOLUME 91.9 FL (78-98); PLATELET COUNT 385 X10'3 (140-440); RED BLOOD COUNT 3.72 X10'6 (4.70-6.10); RED CELL DISTRIBUTION WIDTH 14.1 % (11.5-14.5); WHITE BLOOD COUNT 6.3 X10'3 (4.5-11.0)
[2019-10-28 06:42] LABS: ALBUMIN 3.4 G/DL (3.4-5.0); ANION GAP 7 (8-16); BLOOD UREA NITROGEN 19 MG/DL (7-18); BUN/CREATININE RATIO 16.4 (5.4-32.0); CALCIUM 9.2 MG/DL (8.5-10.1); CHLORIDE 104 MMOL/L (99-107); CREATININE 1.16 MG/DL (0.60-1.10); POTASSIUM 5.1 MMOL/L (3.5-5.1); SODIUM 137 MMOL/L (135-145); TOTAL CARBON DIOXIDE 25.9 MMOL/L (24-32); eGFR 62 ML/MIN
[2019-10-28 06:44] LABS: GLUCOSE 98 MG/DL (70-104)
[2019-10-28] MEDS: atorvastatin 10mg tablet PO SCH (07:17)
[2019-10-28] MEDS: spironolactone 25 MG tablet PO SCH (07:17)
[2019-10-28] MEDS: benztropine 1mg tablet PO SCH ×2 (07:17→22:06)
[2019-10-28] MEDS: pantoprazole 40mg Tablet.DR PO SCH (07:17)
[2019-10-28] MEDS: docusate sod 250mg capsule PO SCH (07:17)
[2019-10-28] MEDS: amiodarone 200mg tablet PO SCH (07:17)
[2019-10-28] MEDS: haloperidol 1mg tablet PO SCH ×3 (07:17→22:07)
[2019-10-28] MEDS: ESCITALOPRAM OXALATE 5 MG TABLET PO SCH (07:18)
[2019-10-28] MEDS: loratadine 10mg tablet PO SCH (07:18)
[2019-10-28] MEDS: venlafaxine XR 75mg capsule (Q24H) PO SCH (07:18)
[2019-10-28] MEDS: HYDROcodone/acetaminophen 5mg/325mg tablet PO PRN ×2 (07:18→22:24)
[2019-10-28] MEDS: K and/or MAG REPLACEMENT MC SCH ×2 (07:23→20:00)
[2019-10-28] MEDS: lisinopril 2.5mg tablet PO SCH (07:25)
[2019-10-28] MEDS: carvedilol 6.25mg tablet PO SCH ×2 (07:25→20:00)
[2019-10-28] MEDS: budesonide 0.5mg/2ml UD nebule IH SCH ×2 (08:00→20:32)
[2019-10-28] MEDS ORDERED: regadenoson 0.4mg/5ml syringe IV PRN (09:25)
[2019-10-28] MEDS ORDERED: aminophylline inj. 10 ML IV ONE (09:44)
--- NOTE | 2019-10-28 11:32 | NUR ---
PAGER ID: [phone] MESSAGE: [id number] Neno Deras: TRUPTI stress test results in, The findings demonstrate a reversible perfusion defect in the inferior apical wall of the left ventricle suggestive of ongoing ischemia. Thanks Cecilia
--- NOTE | 2019-10-28 16:09 | NUR ---
Receiving report from Cecilia HILLS.
--- NOTE | 2019-10-28 16:14 | NUR ---
[facility] Problems reprioritized. Patient report given, questions answered & plan of care reviewed with Suzan HILLS.
--- NOTE | 2019-10-28 16:22 | NUR ---
Patient arrived to room 309 at this time. VSS.
[2019-10-28] MEDS: rivaroxaban 20mg tablet PO SCH (16:45)
--- NOTE | 2019-10-28 16:55 | NUR ---
Received orders for 1. Right Radial catheterization @ 0800 10/29/19, 2. Consent for catheterization, 3. NPO after midnight, 4. start 18g to Rt AC, and 5. Apply emla cream 1 hour prior to procedure per dr. fournier
--- NOTE | 2019-10-28 18:10 | NUR ---
Problems reprioritized. Patient report given, questions answered & plan of care reviewed with Mona HILLS.
--- NOTE | 2019-10-28 18:43 | NUR ---
computer aided design technician notified placed on tele #[phone].
[2019-10-28] MEDS: gabapentin 300mg capsule PO SCH (22:07)
[2019-10-28] MEDS: temazepam 15mg capsule PO PRN (22:07)
[2019-10-29 02:00] VITALS: BP 109/70
[2019-10-29] MEDS: albuterol 2.5 MG/3 ML nebule NEB SCH ×4 (02:00→20:10)
--- NOTE | 2019-10-29 02:40 | NUR ---
SANDER SETTER NOTIFIED PATIENT PLACED ON TELE #25
[2019-10-29] MEDS: normal saline 1000ml 1,000 ML IV SCH (05:42)
[2019-10-29 06:00] VITALS: BP 114/72
--- NOTE | 2019-10-29 06:15 | NUR ---
Patient in room MED 309. I have received report from Mona HILLS and had the opportunity to ask questions and assume patient care.
[2019-10-29 06:18] LABS: HEMATOCRIT 40.3 % (42.0-52.0); HEMOGLOBIN 13.6 g/dl (14.0-17.9); MEAN CORPUSCULAR HEMOGLOBIN 31.3 PG (27.0-31.0); MEAN CORPUSCULAR HGB CONC 33.6 g/dL (33.0-36.5); MEAN CORPUSCULAR VOLUME 93.2 FL (78-98); PLATELET COUNT 469 X10'3 (140-440); RED BLOOD COUNT 4.33 X10'6 (4.70-6.10); WHITE BLOOD COUNT 7.9 X10'3 (4.5-11.0)
--- NOTE | 2019-10-29 06:25 | NUR ---
gave report to REINIER Archer
--- NOTE | 2019-10-29 06:25 | NUR ---
Student documentation: I have reviewed and agree with all interventions, assessments performed and documented by SN Tejal.
[2019-10-29 06:36] LABS: ALBUMIN 4.2 G/DL (3.4-5.0); ANION GAP 10 (8-16); CHLORIDE 102 MMOL/L (99-107); CREATININE 1.09 MG/DL (0.60-1.10); MAGNESIUM 1.8 MG/DL (1.5-2.4); POTASSIUM 4.5 MMOL/L (3.5-5.1); SODIUM 138 MMOL/L (135-145); TOTAL CARBON DIOXIDE 26.2 MMOL/L (24-32); eGFR 67 ML/MIN
[2019-10-29 06:37] LABS: BLOOD UREA NITROGEN 17 MG/DL (7-18); BUN/CREATININE RATIO 15.6 (5.4-32.0); CALCIUM 9.6 MG/DL (8.5-10.1); GLUCOSE 93 MG/DL (70-104)
[2019-10-29] MEDS: budesonide 0.5mg/2ml UD nebule IH SCH ×2 (06:37→20:10)
[2019-10-29] MEDS ORDERED: LIDOcaine/PRILOcaine 5gm cream TP ONE (07:00)
[2019-10-29] MEDS ORDERED: nitroGLYCERIN-Tridil 50MG/D5W 250 ML IV ONE (07:40)
[2019-10-29] MEDS ORDERED: midazolam 2 mg/2 ml injection ONE (07:40)
[2019-10-29] MEDS ORDERED: fentaNYL/PF 50MCG/1 ML 2ML syringe ONE (07:40)
[2019-10-29] MEDS ORDERED: verapamil 2.5 mg/ml inj IV ONE (07:40)
[2019-10-29] MEDS ORDERED: heparin 1,000unit/ml 10ml vial 10 ML ONE (07:41)
[2019-10-29] MEDS ORDERED: iohexol 350MG/ML 100ml bottle IV ONE (07:41)
[2019-10-29] MEDS ORDERED: iohexol 350 MG/ML 50ML vial IV ONE ×2 (07:41→08:56)
[2019-10-29] MEDS ORDERED: LIDOcaine 1% (10mg/ml)w/preservative injection 20ml MDV ONE (07:41)
[2019-10-29] MEDS: haloperidol 1mg tablet PO SCH ×3 (08:00→20:36)
[2019-10-29] MEDS: K and/or MAG REPLACEMENT MC SCH ×2 (08:00→20:00)
[2019-10-29] MEDS: loratadine 10mg tablet PO SCH (08:00)
[2019-10-29 10:00] VITALS: BP 157/70
[2019-10-29] MEDS: rivaroxaban 20mg tablet PO SCH (10:17)
[2019-10-29] MEDS: spironolactone 25 MG tablet PO SCH (10:42)
[2019-10-29] MEDS: docusate sod 250mg capsule PO SCH (10:42)
[2019-10-29] MEDS: atorvastatin 10mg tablet PO SCH (10:43)
[2019-10-29] MEDS: amiodarone 200mg tablet PO SCH (10:43)
[2019-10-29] MEDS: lisinopril 2.5mg tablet PO SCH (10:43)
[2019-10-29] MEDS: venlafaxine XR 75mg capsule (Q24H) PO SCH (10:43)
[2019-10-29] MEDS: carvedilol 6.25mg tablet PO SCH ×2 (10:43→20:00)
[2019-10-29] MEDS: ESCITALOPRAM OXALATE 5 MG TABLET PO SCH (10:43)
[2019-10-29] MEDS: pantoprazole 40mg Tablet.DR PO SCH (10:43)
[2019-10-29] MEDS: benztropine 1mg tablet PO SCH ×2 (10:43→20:36)
[2019-10-29 15:00] VITALS: BP 111/57
[2019-10-29 18:00] VITALS: BP 109/59
--- NOTE | 2019-10-29 18:26 | NUR ---
Problems reprioritized. Patient report given, questions answered & plan of care reviewed with Mona HILLS.
[2019-10-29] MEDS: gabapentin 300mg capsule PO SCH (20:36)
[2019-10-29] MEDS: temazepam 15mg capsule PO PRN (20:36)
[2019-10-29 22:00] VITALS: BP 110/72
[2019-10-30] VITALS (11 sets, daily range): BP systolic 93–137; BP diastolic 51–88
[2019-10-30] MEDS: HYDROcodone/acetaminophen 10/325mg tab PO PRN (00:28)
[2019-10-30] MEDS: albuterol 2.5 MG/3 ML nebule NEB SCH ×4 (02:00→20:10)
[2019-10-30 03:18] LABS: HEMATOCRIT 33.5 % (42.0-52.0); HEMOGLOBIN 11.6 g/dl (14.0-17.9); MEAN CORPUSCULAR HEMOGLOBIN 32.1 PG (27.0-31.0); MEAN CORPUSCULAR HGB CONC 34.6 g/dL (33.0-36.5); MEAN CORPUSCULAR VOLUME 92.5 FL (78-98); PLATELET COUNT 371 X10'3 (140-440); RED BLOOD COUNT 3.62 X10'6 (4.70-6.10); RED CELL DISTRIBUTION WIDTH 13.8 % (11.5-14.5); WHITE BLOOD COUNT 6.9 X10'3 (4.5-11.0)
[2019-10-30 03:20] LABS: ALBUMIN 3.4 G/DL (3.4-5.0); ANION GAP 5 (8-16); BLOOD UREA NITROGEN 17 MG/DL (7-18); BUN/CREATININE RATIO 14.7 (5.4-32.0); CALCIUM 9.2 MG/DL (8.5-10.1); CHLORIDE 104 MMOL/L (99-107); CREATININE 1.16 MG/DL (0.60-1.10); MAGNESIUM 1.7 MG/DL (1.5-2.4); POTASSIUM 4.8 MMOL/L (3.5-5.1); SODIUM 137 MMOL/L (135-145); TOTAL CARBON DIOXIDE 28.1 MMOL/L (24-32); eGFR 62 ML/MIN
[2019-10-30 03:25] LABS: GLUCOSE 107 MG/DL (70-104)
[2019-10-30] MEDS: normal saline 1000ml 1,000 ML IV SCH ×3 (06:06→22:20)
--- NOTE | 2019-10-30 06:37 | NUR ---
gave report to REINIER Hall
--- NOTE | 2019-10-30 06:49 | NUR ---
Patient in room MED 309. I have received report from REINIER Dunn and had the opportunity to ask questions and assume patient care.
[2019-10-30] MEDS: K and/or MAG REPLACEMENT MC SCH ×2 (08:00→20:00)
[2019-10-30] MEDS: docusate sod 250mg capsule PO SCH (08:15)
[2019-10-30] MEDS: pantoprazole 40mg Tablet.DR PO SCH (08:15)
[2019-10-30] MEDS: carvedilol 6.25mg tablet PO SCH ×2 (08:17→22:08)
[2019-10-30] MEDS: atorvastatin 10mg tablet PO SCH (08:17)
[2019-10-30] MEDS: haloperidol 1mg tablet PO SCH ×3 (08:18→22:09)
[2019-10-30] MEDS: loratadine 10mg tablet PO SCH (08:18)
[2019-10-30] MEDS: spironolactone 25 MG tablet PO SCH (08:18)
[2019-10-30] MEDS: amiodarone 200mg tablet PO SCH (08:18)
[2019-10-30] MEDS: lisinopril 2.5mg tablet PO SCH (08:20)
[2019-10-30] MEDS: ESCITALOPRAM OXALATE 5 MG TABLET PO SCH (08:24)
[2019-10-30] MEDS: benztropine 1mg tablet PO SCH ×2 (08:24→22:09)
[2019-10-30] MEDS: venlafaxine XR 75mg capsule (Q24H) PO SCH (08:24)
[2019-10-30] MEDS: budesonide 0.5mg/2ml UD nebule IH SCH ×2 (08:46→20:10)
[2019-10-30] MEDS ORDERED: LIDOcaine 1% W/epiNEPHrine 1:100,000 20ml vial ONE ×3 (16:18→17:48)
[2019-10-30] MEDS ORDERED: ceFAZolin 1000mg inj ONE (16:18)
[2019-10-30] MEDS ORDERED: vancomycin 1,000mg inj ONE (16:18)
[2019-10-30] MEDS ORDERED: iohexol 350MG/ML 100ml bottle IV ONE (16:25)
[2019-10-30] MEDS ORDERED: midazolam 2 mg/2 ml injection ONE ×2 (17:07→17:50)
[2019-10-30] MEDS ORDERED: fentaNYL/PF 50MCG/1 ML 2ML syringe ONE ×2 (17:08→17:50)
[2019-10-30] MEDS ORDERED: diphenhydrAMINE 50 mg/ml inj ONE (17:11)
[2019-10-30] MEDS ORDERED: iohexol 350 MG/ML 50ML vial IV ONE (17:16)
[2019-10-30] MEDS: rivaroxaban 20mg tablet PO SCH (18:00)
--- NOTE | 2019-10-30 18:28 | NUR ---
Problems reprioritized. Patient report given, questions answered & plan of care reviewed with REINIER Oneal.
--- NOTE | 2019-10-30 18:30 | NUR ---
Patient in room MED 309. I have received report from REINIER Hall and had the opportunity to ask questions and assume patient care.
--- NOTE | 2019-10-30 19:40 | NUR ---
Patient arrived back to room from laborer livestock via gurney, was transferred to bed via slide board. Report received from REINIER Waddell. Able to ask questions.
[2019-10-30] MEDS ORDERED: vancomycin/NS 1 GM ADD-VANTAGE 250 ML X 1 DOSE IV ONE (21:00)
[2019-10-30] MEDS: gabapentin 300mg capsule PO SCH (22:09)
[2019-10-30] MEDS: HYDROcodone/acetaminophen 5mg/325mg tablet PO PRN (22:10)
[2019-10-30] MEDS: cephalexin 500mg capsule PO SCH (22:20)
[2019-10-30] MEDS: temazepam 15mg capsule PO PRN (23:20)
[2019-10-31 02:00] VITALS: BP 103/62
[2019-10-31] MEDS: albuterol 2.5 MG/3 ML nebule NEB SCH ×3 (02:00→14:00)
[2019-10-31] MEDS: normal saline 1000ml 1,000 ML IV SCH ×2 (02:06→12:06)
[2019-10-31] MEDS: HYDROcodone/acetaminophen 10/325mg tab PO PRN ×2 (02:23→07:35)
[2019-10-31] MEDS: cephalexin 500mg capsule PO SCH ×3 (02:23→14:48)
[2019-10-31 02:47] LABS: HEMATOCRIT 33.2 % (42.0-52.0); HEMOGLOBIN 11.2 g/dl (14.0-17.9); MEAN CORPUSCULAR HEMOGLOBIN 31.2 PG (27.0-31.0); MEAN CORPUSCULAR HGB CONC 33.8 g/dL (33.0-36.5); MEAN CORPUSCULAR VOLUME 92.4 FL (78-98); PLATELET COUNT 336 X10'3 (140-440); RED BLOOD COUNT 3.59 X10'6 (4.70-6.10); RED CELL DISTRIBUTION WIDTH 13.8 % (11.5-14.5); WHITE BLOOD COUNT 7.8 X10'3 (4.5-11.0)
[2019-10-31 02:57] LABS: ALBUMIN 3.4 G/DL (3.4-5.0); ANION GAP 8 (8-16); BLOOD UREA NITROGEN 15 MG/DL (7-18); BUN/CREATININE RATIO 13.9 (5.4-32.0); CHLORIDE 104 MMOL/L (99-107); CREATININE 1.08 MG/DL (0.60-1.10); MAGNESIUM 1.9 MG/DL (1.5-2.4); POTASSIUM 4.4 MMOL/L (3.5-5.1); SODIUM 138 MMOL/L (135-145); TOTAL CARBON DIOXIDE 25.8 MMOL/L (24-32); eGFR 67 ML/MIN
[2019-10-31 03:00] LABS: GLUCOSE 113 MG/DL (70-104)
[2019-10-31 06:00] VITALS: BP 111/74
--- NOTE | 2019-10-31 06:30 | NUR ---
Problems reprioritized. Patient report given, questions answered & plan of care reviewed with REINIER Hall.
--- NOTE | 2019-10-31 06:43 | NUR ---
Patient in room MED 309. I have received report from REINIER Oneal and had the opportunity to ask questions and assume patient care.
[2019-10-31] MEDS: haloperidol 1mg tablet PO SCH ×2 (07:32→14:48)
[2019-10-31] MEDS: venlafaxine XR 75mg capsule (Q24H) PO SCH (07:32)
[2019-10-31] MEDS: atorvastatin 10mg tablet PO SCH (07:33)
[2019-10-31] MEDS: ESCITALOPRAM OXALATE 5 MG TABLET PO SCH (07:33)
[2019-10-31] MEDS: loratadine 10mg tablet PO SCH (07:33)
[2019-10-31] MEDS: pantoprazole 40mg Tablet.DR PO SCH (07:33)
[2019-10-31] MEDS: spironolactone 25 MG tablet PO SCH (07:33)
[2019-10-31] MEDS: benztropine 1mg tablet PO SCH (07:33)
[2019-10-31] MEDS: lisinopril 2.5mg tablet PO SCH (07:34)
[2019-10-31] MEDS: amiodarone 200mg tablet PO SCH (07:34)
[2019-10-31] MEDS: carvedilol 6.25mg tablet PO SCH (07:34)
[2019-10-31] MEDS: docusate sod 250mg capsule PO SCH (07:34)
[2019-10-31] MEDS: K and/or MAG REPLACEMENT MC SCH (08:00)
[2019-10-31] MEDS: budesonide 0.5mg/2ml UD nebule IH SCH (08:38)
[2019-10-31] MEDS ORDERED: oxyCODONE/APAP 10/325mg tablet PO ONE (09:05)
[2019-10-31 10:00] VITALS: BP 99/62
--- NOTE | 2019-10-31 11:49 | NUR ---
PAGER ID: [phone] MESSAGE: rm 309. pt. Neno Deras. pt. had much better results with Percocet 10. would you like to implement that instead of the Molino? please advise. Julieth HILLS [id number]
[2019-10-31] MEDS ORDERED: OXYC-150 PO (12:20)
[2019-10-31] MEDS ORDERED: CEPH500C2 PO (12:20)
--- NOTE | 2019-10-31 14:00 | NUR ---
Initial: Pt admit w/ chest pain and CAD s/p cath and AICD per MD note. EF 30% per MD. LBM 10/25 receiving colace and MoM 10/30 last night. PO 75-100% heart healthy diet meeting needs. MILTON d/w RN regarding additional bowel care per MD approval. Will continue to monitor. Rec: 1. continue heart healthy diet 2. routine bowel care 3. wt per rx Addendum: 10/31/19 at [address] Amended: Links added.
[2019-10-31 15:00] VITALS: BP 129/71
--- NOTE | 2019-10-31 16:13 | NUR ---
Patient refused SVN tx @ this time. No Shortness of breath noted. Addendum: 10/31/19 at 1613 by Shikha Alvarado RT Amended: Links added.
--- NOTE | 2019-10-31 16:44 | NUR ---
pt. discharged from facilty at 1631. pt. was wheeled down to private vehicle and his accompanied by staff. pt. understood and signed all paperwork. pt. IV's were d/c intact. pt. understands to make f/u appointment with Dr. Hagan. pt. was handed scripts for new meds [facility] pt. left with all belongings. pt. will not be able to fill new prescriptions until tomorrow d[facility]t the [facility]. RN discussed with the charge sending pt. home with 2 doses of antibiotics so that pt. wouldn't miss any doses due tonight. pt. understands how to take them at home.
--- NOTE | 2019-10-31 18:49 | NUR ---
Student documentation: I have reviewed and agree with all interventions, assessments performed and documented by MIGUEL ANGEL Wang.
[2019-10-31] MEDS ORDERED: lactobacillus rhamnosus 10,000 MMU CELLS/CAPSULE PO SCH (20:00)
== END 2019-10-31 16:31 | disposition home or self-care (01) | DRG 222 ==
LOC: ER 09:53 → ED HOLD 12:38 → PCU 3S 13:40 → OBSVTOIN 10-28 11:14 → MED 3N 10-28 16:47
PROVIDERS: ADMIT Family Medicine; ATTEND Family Medicine
PROC: 4A02XM4 Measurement of Cardiac Total Activity, External Approach (ICD-10-PCS; 2019-10-28)
PROC: 3E033HZ Introduction of Radioactive Substance into Peripheral Vein, Percutaneous Approach (ICD-10-PCS; 2019-10-28)
PROC: 4A023N8 Measurement of Cardiac Sampling and Pressure, Bilateral, Percutaneous Approach (ICD-10-PCS; 2019-10-29)
PROC: B2111ZZ Fluoroscopy of Multiple Coronary Arteries using Low Osmolar Contrast (ICD-10-PCS; 2019-10-29)
PROC: B2151ZZ Fluoroscopy of Left Heart using Low Osmolar Contrast (ICD-10-PCS; 2019-10-29)
PROC: 0JH608Z Insertion of Defibrillator Generator into Chest Subcutaneous Tissue and Fascia, Open Approach (ICD-10-PCS; principal; 2019-10-31)
PROC: 02HK3KZ Insertion of Defibrillator Lead into Right Ventricle, Percutaneous Approach (ICD-10-PCS; 2019-10-31)
PROC: 02HL3KZ Insertion of Defibrillator Lead into Left Ventricle, Percutaneous Approach (ICD-10-PCS; 2019-10-31)
PROC: 0JPT0PZ Removal of Cardiac Rhythm Related Device from Trunk Subcutaneous Tissue and Fascia, Open Approach (ICD-10-PCS; 2019-10-31)
PROC: 02PA3MZ Removal of Cardiac Lead from Heart, Percutaneous Approach (ICD-10-PCS; 2019-10-31)
PROC: B5171ZZ Fluoroscopy of Left Subclavian Vein using Low Osmolar Contrast (ICD-10-PCS; 2019-10-31)
DX: I21.4 Non-ST elevation (NSTEMI) myocardial infarction (principal); I50.23 Acute on chronic systolic (congestive) heart failure; I42.0 Dilated cardiomyopathy; I13.0 Hypertensive heart and chronic kidney disease with heart failure and stage 1 through stage 4 chronic kidney disease, or unspecified chronic kidney disease; I48.21 Permanent atrial fibrillation; I25.119 Atherosclerotic heart disease of native coronary artery with unspecified angina pectoris; I49.5 Sick sinus syndrome; E87.5 Hyperkalemia; E66.9 Obesity, unspecified; E78.5 Hyperlipidemia, unspecified; F03.90 Unspecified dementia, unspecified severity, without behavioral disturbance, psychotic disturbance, mood disturbance, and anxiety; F32.9 Major depressive disorder, single episode, unspecified; F43.10 Post-traumatic stress disorder, unspecified; G47.33 Obstructive sleep apnea (adult) (pediatric); J44.9 Chronic obstructive pulmonary disease, unspecified; K21.9 Gastro-esophageal reflux disease without esophagitis; K59.00 Constipation, unspecified; N18.9 Chronic kidney disease, unspecified; Z95.0 Presence of cardiac pacemaker; Z87.891 Personal history of nicotine dependence; Z86.73 Personal history of transient ischemic attack (TIA), and cerebral infarction without residual deficits; Z79.51 Long term (current) use of inhaled steroids; Z79.01 Long term (current) use of anticoagulants; Z68.35 Body mass index [BMI] 35.0-35.9, adult
CPT/HCPCS: 33225; 33231; 36415; 71046; 78452; 80048; 80053; 80061; 83605; 83735; 84484; 85025; 85027; 87040; 87081; 93005; 93017; 93306; 93460; 94640; 94760; 97116; 97161; 97530; 99152; 99153; 99285; A4565; A4620; A5120; A6258; A6449; A9500; C1769; C1777; C1882; C1894; G0378; J0280; J0690; J1200; J1644; J2001; J2250; J2785; J3010; J3370; J3490; J7030; J7626; Q9967

== ENCOUNTER 2021-01-12 21:10 | Emergency (ER) | payer OTHER, MEDICARE ==
[~2021-01-12] VITALS: Ht 188 cm; Wt 130.2 kg
[~2021-01-12 21:10] MED LIST changes: +ALBU18HF2 INH; +ATOR10TA70 PO; +BUDE10.22 INH; -CARV3.12 PO; +CARV6.252 PO; +CHOL100025 PO; +CYAN-51 PO; +DOCU250C71 PO; +GABA-532 PO; +HALO1TAB PO; -HALO5AMP2 PO; +OXYC-150 PO; -PANT20TA2 PO; -PRED20TA PO; +PSYL0.5210 PO; +SENN-263 PO
[2021-01-12 21:39] LABS: BASOPHILS % (AUTO) 0.5 % (0-1); EOSINOPHILS # (AUTO) 0.3 X10'3 (0-0.9); EOSINOPHILS % (AUTO) 4.2 % (0-6); HEMATOCRIT 35.8 % (42.0-52.0); LYMPHOCYTES # (AUTO) 1.8 X10'3 (1.1-4.8); LYMPHOCYTES % (AUTO) 23.3 % (21-51); MEAN CORPUSCULAR HEMOGLOBIN 32.1 PG (27.0-31.0); MEAN CORPUSCULAR HGB CONC 33.5 g/dL (33.0-36.5); MEAN CORPUSCULAR VOLUME 96.1 FL (78-98); MEAN PLATELET VOLUME 5.8 FL (7.4-10.4); MONOCYTES % (AUTO) 12.3 % (2-12); NEUTROPHILS # (AUTO) 4.6 X10'3 (1.8-7.7); NEUTROPHILS % (AUTO) 59.7 % (42-75); PLATELET COUNT 270 X10'3 (140-440); RED BLOOD COUNT 3.72 X10'6 (4.70-6.10); RED CELL DISTRIBUTION WIDTH 16.9 % (11.5-14.5); WHITE BLOOD COUNT 7.7 X10'3 (4.5-11.0)
[2021-01-12 21:49] LABS: ALANINE AMINOTRANSFERASE 22 U/L (12-78); ALBUMIN 3.4 G/DL (3.4-5.0); ALBUMIN/GLOBULIN RATIO 0.8 (1.1-1.5); ALKALINE PHOSPHATASE 119 IU/L (46-116); ANION GAP 11 (8-16); ASPARTATE AMINO TRANSFERASE 23 U/L (10-37); BILIRUBIN,TOTAL 0.2 MG/DL (0.1-1.0); BLOOD UREA NITROGEN 19 MG/DL (7-18); BUN/CREATININE RATIO 15.7 (5.4-32.0); CALCIUM 8.7 MG/DL (8.5-10.1); CHLORIDE 98 MMOL/L (99-107); CREATININE 1.21 MG/DL (0.60-1.10); SODIUM 132 MMOL/L (135-145); TOTAL PROTEIN 7.6 G/DL (6.4-8.2); eGFR 59 ML/MIN
[2021-01-12 21:50] LABS: GLUCOSE 94 MG/DL (70-104)
[2021-01-12] MEDS ORDERED: normal saline 1000ml 1,000 ML IV ONE (22:20)
[2021-01-12 22:33] LABS: ETHANOL 0.224 GM/DL (0.0-0.010)
--- NOTE | 2021-01-12 23:44 | NUR ---
/POA: Carly cell [phone]/work [phone] (Noc shift Restpadgordy RN)
--- NOTE | 2021-01-13 00:57 | NUR ---
Patient given blankets, pillow, repositioned for comfort, light turned down, both rails up. Resting comfortably. will come take him home when she gets off work at 0630 today.
[2021-01-13 06:10] VITALS: BP 120/78
== END 2021-01-13 07:23 | disposition home or self-care (01) ==
LOC: ER 21:10
DX: S09.90XA Unspecified injury of head, initial encounter (principal); F10.129 Alcohol abuse with intoxication, unspecified; Y90.7 Blood alcohol level of 200-239 mg/100 ml; F03.90 Unspecified dementia, unspecified severity, without behavioral disturbance, psychotic disturbance, mood disturbance, and anxiety; F95.2 Tourette's disorder; I48.91 Unspecified atrial fibrillation; E78.00 Pure hypercholesterolemia, unspecified; I10 Essential (primary) hypertension; I25.2 Old myocardial infarction; J44.9 Chronic obstructive pulmonary disease, unspecified; K21.9 Gastro-esophageal reflux disease without esophagitis; N40.0 Benign prostatic hyperplasia without lower urinary tract symptoms; M19.90 Unspecified osteoarthritis, unspecified site; F43.10 Post-traumatic stress disorder, unspecified; Z95.0 Presence of cardiac pacemaker; Z72.89 Other problems related to lifestyle; Z79.899 Other long term (current) drug therapy; Z91.030 Bee allergy status; Z88.8 Allergy status to other drugs, medicaments and biological substances; W19.XXXA Unspecified fall, initial encounter; Y93.89 Activity, other specified; Y92.89 Other specified places as the place of occurrence of the external cause; Y99.8 Other external cause status
CPT/HCPCS: 36415; 70450; 71045; 80053; 80320; 83880; 84484; 85025; 93005; 96360; 99285; J7030

== ENCOUNTER 2021-01-29 10:21 | Emergency (ER) | payer OTHER, MEDICARE ==
[~2021-01-29] VITALS: Ht 189.2 cm; Wt 125.0 kg
--- NOTE | 2021-01-29 11:13 | NUR ---
Spoke with Dr. Pineda regarding possible need for CT head after patient had a fall yesterday. Patient is currently on anticoagulant therapy and ETOH. Patient also has a head laceration, bleeding controlled. Addendum: 01/29/21 at 1114 by HKISER Verbal order from Dr. pineda ordered.
[2021-01-29 12:22] LABS: BASOPHILS % (AUTO) 0.7 % (0-1); EOSINOPHILS # (AUTO) 0.1 X10'3 (0-0.9); EOSINOPHILS % (AUTO) 1.2 % (0-6); HEMATOCRIT 33.3 % (42.0-52.0); HEMOGLOBIN 11.3 g/dl (14.0-17.9); LYMPHOCYTES # (AUTO) 1.1 X10'3 (1.1-4.8); MEAN CORPUSCULAR HEMOGLOBIN 33.9 PG (27.0-31.0); MEAN CORPUSCULAR HGB CONC 33.8 g/dL (33.0-36.5); MEAN CORPUSCULAR VOLUME 100.4 FL (78-98); MEAN PLATELET VOLUME 5.3 FL (7.4-10.4); MONOCYTES # (AUTO) 0.6 X10'3 (0-0.9); MONOCYTES % (AUTO) 8.9 % (2-12); NEUTROPHILS # (AUTO) 4.8 X10'3 (1.8-7.7); NEUTROPHILS % (AUTO) 72.2 % (42-75); PLATELET COUNT 341 X10'3 (140-440); RED BLOOD COUNT 3.32 X10'6 (4.70-6.10); RED CELL DISTRIBUTION WIDTH 18.9 % (11.5-14.5); WHITE BLOOD COUNT 6.6 X10'3 (4.5-11.0)
[2021-01-29 12:31] LABS: CLARITY,URINE CLEAR (Clear); COLOR,URINE STRAW (Yellow); GLUCOSE, URINE NEGATIVE (Neg); KETONES,URINE TRACE mg/dl (Neg); LEUKOCYTE ESTERASE ,URINE NEGATIVE (Neg); NITRITES, URINE NEGATIVE (Neg); OCCULT BLOOD,URINE NEGATIVE (Neg); PH,URINE 5.5 (4.8-8.0); PROTEIN,URINE NEGATIVE (Neg); UROBILINOGEN,URINE 0.2 E.U/dL (0.2-1.0)
[2021-01-29 12:35] LABS: ALANINE AMINOTRANSFERASE 31 U/L (12-78); ALBUMIN 3.8 G/DL (3.4-5.0); ALKALINE PHOSPHATASE 131 IU/L (46-116); ANION GAP 14 (8-16); CALCIUM 8.4 MG/DL (8.5-10.1); CHLORIDE 92 MMOL/L (99-107); CREATININE 0.98 MG/DL (0.60-1.10); POTASSIUM 4.7 MMOL/L (3.5-5.1); SODIUM 129 MMOL/L (135-145); TOTAL CARBON DIOXIDE 22.7 MMOL/L (24-32); eGFR 75 ML/MIN
[2021-01-29 12:36] LABS: UA COLLECTION TYPE NON-SPECIFIED
[2021-01-29 12:44] LABS: ETHANOL 0.234 GM/DL (0.0-0.010)
[2021-01-29 12:51] LABS: ASPARTATE AMINO TRANSFERASE 54 U/L (10-37); BILIRUBIN,TOTAL 0.7 MG/DL (0.1-1.0); BLOOD UREA NITROGEN 11 MG/DL (7-18); BUN/CREATININE RATIO 11.2 (5.4-32.0); GLUCOSE 82 MG/DL (70-104); TOTAL PROTEIN 7.7 G/DL (6.4-8.2)
[2021-01-29 12:57] LABS: ANISOCYTOSIS 2+; MICROCYTOSIS FEW; PLATELET ESTIMATE NORMAL
[2021-01-29] MEDS ORDERED: THIA100T70 PO (13:08)
[2021-01-29] MEDS ORDERED: ESCI20TA39 PO (13:08)
[2021-01-29] MEDS ORDERED: HALO5TAB PO (13:08)
[2021-01-29] MEDS ORDERED: HYDR-3964 PO (13:08)
[2021-01-29 13:11] LABS: URINE AMPHETAMINE SCREEN NEGATIVE (Neg); URINE BARBITUATE SCREEN NEGATIVE (Neg); URINE BENZODIAZEPINES SCREEN NEGATIVE (Neg); URINE CANNABINOID SCREEN NEGATIVE (Neg); URINE COCAINE SCREEN NEGATIVE (Neg); URINE METHADONE SCREEN NEGATIVE (Neg); URINE OPIATE SCREEN NEGATIVE (Neg); URINE PHENCYCLIDINE SCREEN NEGATIVE (Neg)
--- NOTE | 2021-01-29 19:00 | NUR ---
The patient has been transferred to bed 23 in the ER. He was changed in to green scrubs and updated on his plan of care. He was given a meal. When asked about suicidal thoughts he stated, "I don't know"
--- NOTE | 2021-01-29 20:58 | NUR ---
One to one with the patient who is resting on his bed. He was made aware that [facility] would not evaluate him until tomorrow 2nd to his BA on admit. He stated that he has been feeling suicidal since yesterday and when asked if he could identify stressors he stated, "I'm an alcoholic" He denies prior psychiatric hospitalization. He denies psychotic symptoms. He does report some financial stressors after further inguiry. He stated that he does have financial stressors after being treated by a assembler golf wood head [facility] and had a 27,000$ medical bill. He did stated that he wants to live for his kids. He denies A/V hallucinations. History of Tourettes.
[2021-01-29] MEDS: haloperidol 5mg tablet PO SCH ×2 (21:00→22:23)
[2021-01-29] MEDS ORDERED: epiNEPHrine 0.1mg/ml 10ml syringe IV PRN (21:00)
--- NOTE | 2021-01-29 21:08 | NUR ---
Spoke with the patient's who is very concerned about him being discharged and she wants to speak with [facility] business systems analyst before they discharge him. She reports past dx of PTSD, MDD, Tourettes, Anxiety. She stated that he is extremely dependant on her and while in the main ER he was texting her suicidal statements.
--- NOTE | 2021-01-29 21:34 | NUR ---
The patient reported that he is feeling sob when up to use the bathroom. Lungs with expiratory wheezes and respiratory paged to give the patient a breathing treatment.
[2021-01-29] MEDS: albuterol 2.5 MG/3 ML nebule NEB PRN (21:52)
[2021-01-29] MEDS ORDERED: ondansetron 4mg rapidly disintigrating tab PO ONE (22:20)
--- NOTE | 2021-01-29 22:28 | NUR ---
The patient is complaining of nausea and Stephanie ARCE made aware and orders received.
--- NOTE | 2021-01-30 00:59 | NUR ---
The patient reports he is unable to sleep. Dr. Tao made aware and orders received.
[2021-01-30] MEDS ORDERED: traZODone 50mg tablet PO ONE (01:00)
--- NOTE | 2021-01-30 03:30 | NUR ---
The patient appears to be sleeping but is restless at times.
--- NOTE | 2021-01-30 04:53 | NUR ---
The patient appears to be sleeping
[2021-01-30] MEDS ORDERED: HYDROcodone/acetaminophen 5mg/325mg tablet PO ONE (05:55)
--- NOTE | 2021-01-30 05:55 | NUR ---
Patient complained of rib pain on his right side. Reports pain 06/22 Dr. Tao made aware and orders received.
--- NOTE | 2021-01-30 07:09 | NUR ---
Patient at this time awake, chaging clothe, asking for phone to call and to watch tv, oriented that calling times are after 8am, patient inidcates understanding.
[2021-01-30] MEDS: venlafaxine XR 75mg capsule (Q24H) PO SCH (07:40)
[2021-01-30] MEDS: HYDROcodone/acetaminophen 5mg/325mg tablet PO SCH ×2 (07:40→20:17)
[2021-01-30] MEDS: psyllium seed 3.4 gm packet PO SCH (07:40)
[2021-01-30] MEDS: benztropine 1mg tablet PO SCH ×2 (07:41→20:17)
[2021-01-30] MEDS: pantoprazole 40mg Tablet.DR PO SCH (07:41)
[2021-01-30] MEDS: cholecalciferol (vitamin D3) 1,000 unit (25mcg) tablet PO SCH (07:41)
[2021-01-30] MEDS: atorvastatin 10mg tablet PO SCH (07:41)
[2021-01-30] MEDS: cyanocobalamin 500mcg tablet PO SCH (07:41)
[2021-01-30] MEDS: thiamine 100mg tablet PO SCH (07:41)
[2021-01-30] MEDS: ESCITALOPRAM OXALATE 5 MG TABLET PO SCH (08:08)
[2021-01-30] MEDS: docusate sod 250mg capsule PO SCH (08:08)
[2021-01-30] MEDS: carvedilol 6.25mg tablet PO SCH ×2 (08:08→20:17)
[2021-01-30] MEDS: lisinopril 2.5mg tablet PO SCH (08:08)
[2021-01-30] MEDS: amiodarone 200mg tablet PO SCH (08:08)
[2021-01-30] MEDS: budesonide 0.5mg/2ml UD nebule IH SCH ×2 (08:14→20:10)
[2021-01-30] MEDS: albuterol 2.5 MG/3 ML nebule NEB PRN ×2 (08:19→17:13)
--- NOTE | 2021-01-30 08:41 | NUR ---
[facility] AT FOR EVAL
--- NOTE | 2021-01-30 09:03 | NUR ---
Patient awake took meds, patient constantly walking to the nurses station and has been requesting the phone and tv.
--- NOTE | 2021-01-30 10:55 | NUR ---
PATIENT AT THIS TIME REQUESTED A URINAL, PATIENT ALSO WATCHING TV AND SHARING IT WITH HIS NEIGHBOR.
--- NOTE | 2021-01-30 12:00 | NUR ---
PT AWAKE AND WATCHING TV
--- NOTE | 2021-01-30 13:25 | NUR ---
PT IS ON HIS 5TH OR 6TH PITCHER OF WATER FOR THE DAY
[2021-01-30] MEDS ORDERED: thiamine 100mg/ml 2ml inj. IV ONE (13:35)
[2021-01-30] MEDS ORDERED: dextrose 50%-water 50ml dispensing syringe IV PRN (13:35)
[2021-01-30] MEDS ORDERED: LORazepam 2 mg/ml vial IV PRN (13:35)
[2021-01-30] MEDS ORDERED: haloperidol 5mg tablet PO PRN (13:35)
[2021-01-30] MEDS ORDERED: haloperidol lactate 5mg/ml inj IM PRN (13:35)
[2021-01-30] MEDS ORDERED: LORazepam 1 MG tablet PO PRN ×3 (13:55→14:00)
[2021-01-30] MEDS ORDERED: normal saline 1000ML IV soln IVB ONE (14:35)
--- NOTE | 2021-01-30 15:26 | NUR ---
CAME BY AND DROPPED OFF 2 BOOKS AND HIS WALLET. SHE LET US KNOW THAT HE IS VERY "NEEDY" AND WILL ASK FOR PEOPLE TO DO THINGS FOR HIM THAT HE CAN CERTAINLY DO HIMSELF.
--- NOTE | 2021-01-30 16:08 | NUR ---
PT CONTINUES TO ASK FOR TV AND OTHER ITEMS MORE OFTEN THEN HE SHOULD. CONTINUES TO DEPEND ON STAFF FOR THINGS HE IS FULL CAPABLE OF DOING HIMSELF.
[2021-01-30] MEDS: rivaroxaban 20mg tablet PO SCH (17:31)
[2021-01-30 18:30] LABS: BASOPHILS # (AUTO) 0.1 X10'3 (0-0.2); BASOPHILS % (AUTO) 1.1 % (0-1); EOSINOPHILS # (AUTO) 0.3 X10'3 (0-0.9); EOSINOPHILS % (AUTO) 4.1 % (0-6); HEMATOCRIT 32.5 % (42.0-52.0); HEMOGLOBIN 11.2 g/dl (14.0-17.9); LYMPHOCYTES # (AUTO) 1.2 X10'3 (1.1-4.8); LYMPHOCYTES % (AUTO) 17.9 % (21-51); MEAN CORPUSCULAR HEMOGLOBIN 34.6 PG (27.0-31.0); MEAN CORPUSCULAR HGB CONC 34.5 g/dL (33.0-36.5); MEAN CORPUSCULAR VOLUME 100.2 FL (78-98); MEAN PLATELET VOLUME 5.7 FL (7.4-10.4); MONOCYTES # (AUTO) 1.3 X10'3 (0-0.9); MONOCYTES % (AUTO) 18.3 % (2-12); NEUTROPHILS # (AUTO) 4.1 X10'3 (1.8-7.7); NEUTROPHILS % (AUTO) 58.6 % (42-75); PLATELET COUNT 293 X10'3 (140-440); RED BLOOD COUNT 3.24 X10'6 (4.70-6.10)
[2021-01-30 18:43] LABS: ALANINE AMINOTRANSFERASE 31 U/L (12-78); ALBUMIN 3.8 G/DL (3.4-5.0); ALKALINE PHOSPHATASE 124 IU/L (46-116); ANION GAP 12 (8-16); ASPARTATE AMINO TRANSFERASE 53 U/L (10-37); BLOOD UREA NITROGEN 15 MG/DL (7-18); BUN/CREATININE RATIO 12.6 (5.4-32.0); CALCIUM 8.9 MG/DL (8.5-10.1); CHLORIDE 93 MMOL/L (99-107); CREATININE 1.19 MG/DL (0.60-1.10); GLUCOSE 114 MG/DL (70-104); MAGNESIUM 1.6 MG/DL (1.5-2.4); POTASSIUM 4.8 MMOL/L (3.5-5.1); SODIUM 128 MMOL/L (135-145); TOTAL CARBON DIOXIDE 22.6 MMOL/L (24-32); TOTAL PROTEIN 7.5 G/DL (6.4-8.2); eGFR 60 ML/MIN
[2021-01-30 18:44] LABS: ACETAMINOPHEN < 2.0 UG/ML (10-30)
--- NOTE | 2021-01-30 20:00 | NUR ---
The patient is alert and oriented. He denies that he is feeling suicidal. He has been compliant with the unit limitations. He makes frequent requests of staff that at times are things he is capable of doing independently. He is calm. There is no apparent withdrawal symptoms at this time.
[2021-01-30] MEDS: haloperidol 5mg tablet PO SCH (20:17)
--- NOTE | 2021-01-30 20:54 | NUR ---
The patient is resting on his bed.
[2021-01-30] MEDS ORDERED: traZODone 50mg tablet PO SCH (21:00)
--- NOTE | 2021-01-30 22:00 | NUR ---
The patient appears to be sleeping
[2021-01-30 22:57] LABS: TOTAL CELLS COUNTED 100
[2021-01-30 22:58] LABS: ANISOCYTOSIS 2+; PLATELET ESTIMATE NORMAL
--- NOTE | 2021-01-30 23:41 | NUR ---
The patient up to use the bathroom
[2021-01-31] MEDS ORDERED: ibuprofen tablet 400 MG TABLET PO ONE (01:00)
--- NOTE | 2021-01-31 01:03 | NUR ---
The patient reports he is having leg pain and requested motrin. MD made aware and orders received.
--- NOTE | 2021-01-31 03:40 | NUR ---
The patient appears to be sleeping but is up to use the bathroom periodically
--- NOTE | 2021-01-31 05:00 | NUR ---
The patient up at the station at 0430 asking for coffee. Turning on his light. He was encouraged to try and rest for a while longer.
--- NOTE | 2021-01-31 07:00 | NUR ---
pt is awake and asking for coffee
[2021-01-31] MEDS: lisinopril 2.5mg tablet PO SCH (07:53)
[2021-01-31] MEDS: benztropine 1mg tablet PO SCH ×2 (07:53→20:07)
[2021-01-31] MEDS: carvedilol 6.25mg tablet PO SCH ×2 (07:53→20:07)
[2021-01-31] MEDS: ESCITALOPRAM OXALATE 5 MG TABLET PO SCH (07:54)
[2021-01-31] MEDS: cholecalciferol (vitamin D3) 1,000 unit (25mcg) tablet PO SCH (07:54)
[2021-01-31] MEDS: HYDROcodone/acetaminophen 5mg/325mg tablet PO SCH ×2 (07:54→20:07)
[2021-01-31] MEDS: docusate sod 250mg capsule PO SCH (07:54)
[2021-01-31] MEDS: amiodarone 200mg tablet PO SCH (07:54)
[2021-01-31] MEDS: atorvastatin 10mg tablet PO SCH (07:54)
[2021-01-31] MEDS: thiamine 100mg tablet PO SCH (07:57)
[2021-01-31] MEDS: venlafaxine XR 75mg capsule (Q24H) PO SCH (07:57)
[2021-01-31] MEDS: psyllium seed 3.4 gm packet PO SCH (07:58)
[2021-01-31] MEDS: pantoprazole 40mg Tablet.DR PO SCH (07:58)
[2021-01-31] MEDS: cyanocobalamin 500mcg tablet PO SCH (07:58)
[2021-01-31] MEDS: budesonide 0.5mg/2ml UD nebule IH SCH ×2 (08:07→20:16)
[2021-01-31] MEDS: albuterol 2.5 MG/3 ML nebule NEB PRN ×2 (08:07→20:16)
--- NOTE | 2021-01-31 09:00 | NUR ---
pt up ambulating with his walker to the bathroom. pt can ambulate independently. pt ate his breakfast
[2021-01-31] MEDS ORDERED: LORazepam 1 MG tablet PO PRN (09:40)
--- NOTE | 2021-01-31 11:00 | NUR ---
pt has tired to call his family.
[2021-01-31] MEDS ORDERED: psyllium seed 3.4 gm packet PO SCH (12:35)
[2021-01-31 12:51] LABS: ALANINE AMINOTRANSFERASE 31 U/L (12-78); ALBUMIN 3.7 G/DL (3.4-5.0); ALKALINE PHOSPHATASE 119 IU/L (46-116); ANION GAP 10 (8-16); ASPARTATE AMINO TRANSFERASE 50 U/L (10-37); BILIRUBIN,TOTAL 0.8 MG/DL (0.1-1.0); BLOOD UREA NITROGEN 10 MG/DL (7-18); BUN/CREATININE RATIO 9.6 (5.4-32.0); CHLORIDE 92 MMOL/L (99-107); CREATININE 1.04 MG/DL (0.60-1.10); POTASSIUM 5.2 MMOL/L (3.5-5.1); SODIUM 129 MMOL/L (135-145); TOTAL CARBON DIOXIDE 26.9 MMOL/L (24-32); TOTAL PROTEIN 7.3 G/DL (6.4-8.2); eGFR 70 ML/MIN
[2021-01-31 12:53] LABS: ACETAMINOPHEN < 2.0 UG/ML (10-30); GLUCOSE 116 MG/DL (70-104)
--- NOTE | 2021-01-31 13:00 | NUR ---
pt is resting in his room. no issues at this time
--- NOTE | 2021-01-31 15:00 | NUR ---
pt is walking around.
--- NOTE | 2021-01-31 17:00 | NUR ---
pt is resting
[2021-01-31 17:05] VITALS: BP 123/77
[2021-01-31] MEDS: rivaroxaban 20mg tablet PO SCH (18:28)
[2021-02-01] MEDS ORDERED: LORazepam 1 MG tablet PO PRN (13:35)
[2021-02-01] MEDS ORDERED: LORazepam 2 mg/ml vial IV PRN (13:35)
[2021-02-03] MEDS ORDERED: LORazepam 2 mg/ml vial IV PRN (13:35)
[2021-02-03] MEDS ORDERED: LORazepam 1 MG tablet PO PRN (13:35)
== END 2021-01-31 20:53 ==
LOC: ER 10:22
DX: R45.851 Suicidal ideations (principal); Z20.822 Contact with and (suspected) exposure to COVID-19; I48.91 Unspecified atrial fibrillation; E78.00 Pure hypercholesterolemia, unspecified; I10 Essential (primary) hypertension; I25.2 Old myocardial infarction; J44.9 Chronic obstructive pulmonary disease, unspecified; K21.9 Gastro-esophageal reflux disease without esophagitis; M19.90 Unspecified osteoarthritis, unspecified site; F32.9 Major depressive disorder, single episode, unspecified; Z95.0 Presence of cardiac pacemaker; Z72.89 Other problems related to lifestyle; Z91.030 Bee allergy status; Z88.8 Allergy status to other drugs, medicaments and biological substances; Z88.5 Allergy status to narcotic agent; Z79.899 Other long term (current) drug therapy
CPT/HCPCS: 36415; 70450; 80053; 80305; 80320; 80329; 81003; 83735; 84443; 85007; 85008; 85025; 87426; 93005; 94640; 99285; J7030; 94760; J7626

== ENCOUNTER 2021-01-31 19:00 | Inpatient (IN) | payer OTHER, MEDICARE ==
[~2021-01-31] VITALS: Ht 189.2 cm; Wt 128.0 kg
[~2021-01-31 19:00] MED LIST changes: -ESCI10TA PO; +ESCI20TA39 PO; -GABA-532 PO; -HALO1TAB PO; +HALO5TAB PO; +HYDR-3964 PO; -OXYC-150 PO; -SENN-263 PO; -SPIR25TA5 PO; +THIA100T70 PO
[2021-01-31] MEDS ORDERED: LORazepam 1 MG tablet PO PRN (22:00)
[2021-01-31] MEDS ORDERED: traZODone 50mg tablet PO PRN ×2 (22:00→22:20)
[2021-01-31] MEDS ORDERED: loperamide 2mg capsule PO PRN (22:00)
[2021-01-31] MEDS ORDERED: acetaminophen 325mg tablet PO PRN ×2 (22:00)
[2021-01-31] MEDS ORDERED: magnesium hydroxide 30ml (MOM) UD suspension PO PRN (22:00)
[2021-01-31] MEDS ORDERED: mag hydrox/Alum hydrox/simeth 30ml oral suspension PO PRN (22:00)
[2021-01-31 22:43] VITALS: BP 119/49
--- NOTE | 2021-02-01 00:52 | NUR ---
[employer] AL[employer]ATION NOTE: LEGAL HOLD: 5150 for DTS REASON FOR ADMIT: Client presented to ED r/t depression and thoughts of suicide. Client threatened to "cut his throat". Client is , but living separate from spouse. He stated, "I love my apartment." and "My and I are good friends." Reported, "This year sucked. I lost a friend I had since 1961. I can't go back to my group because of Covid." Client denies any hx of SI and has no prior attempts. Clients believe's he has dementia, although he seems to be a good historian and answers questions appropriately. History of heavy ETOH use. THIS SHIFT: Client arrived at 21:20 in a wheelchair. He has an unsteady gait. He reported he was tired and wanted to go to bed. His personal belongings were inventoried by Rogelio Coon. Client showered and changed into scrubs. He was cooperative. His affect and mood are depressed.
[2021-02-01] MEDS ORDERED: EPINEPHRINE 0.3 MG/0.3 ML IM PRN (03:00)
[2021-02-01] MEDS ORDERED: ALBUTEROL INHALER 1 PUFF/90 MCG INHALER IH PRN (03:00)
[2021-02-01] MEDS ORDERED: HYDROcodone/acetaminophen 5mg/325mg tablet PO PRN (03:00)
[2021-02-01] MEDS ORDERED: albuterol 2.5 MG/3 ML nebule NEB PRN (03:20)
[2021-02-01 07:27] VITALS: BP 101/58
[2021-02-01 07:38] LABS: CHOL/HDL RATIO 1.3 (0.00-4.99); CHOLESTEROL 170 MG/DL (0-200); HDL CHOLESTEROL 127 MG/DL (35-60); LDL CHOLESTEROL 24 MG/DL (50-100); TRIGLYCERIDES 40 MG/DL (20-135)
[2021-02-01 07:57] LABS: HEMOGLOBIN A1C 5.3 % (4.5-6.2)
[2021-02-01] MEDS ORDERED: lisinopril 5mg tablet PO SCH (08:00)
[2021-02-01] MEDS: amiodarone 200mg tablet PO SCH (08:00)
[2021-02-01] MEDS: budesonide 0.5mg/2ml UD nebule IH SCH ×2 (08:00→20:12)
[2021-02-01] MEDS: albuterol 2.5 MG/3 ML nebule NEB SCH ×3 (08:00→20:12)
[2021-02-01] MEDS: carvedilol 6.25mg tablet PO SCH ×2 (08:00→19:37)
[2021-02-01] MEDS: docusate sodium 100mg/10ml UD cup PO SCH (08:02)
[2021-02-01] MEDS: pantoprazole 40mg Tablet.DR PO SCH (08:03)
[2021-02-01] MEDS: cyanocobalamin 500mcg tablet PO SCH (08:03)
[2021-02-01] MEDS: cholecalciferol (vitamin D3) 1,000 unit (25mcg) tablet PO SCH (08:03)
[2021-02-01] MEDS: atorvastatin 10mg tablet PO SCH (08:05)
[2021-02-01] MEDS: benztropine 1mg tablet PO SCH ×2 (08:05→19:38)
[2021-02-01] MEDS: ESCITALOPRAM OXALATE 5 MG TABLET PO SCH (08:07)
[2021-02-01] MEDS ORDERED: pneumococcal 23-VAL P-sac vacc 25 mcg/0.5ml vial IMVAC ONE (10:00)
--- NOTE | 2021-02-01 10:15 | NUR ---
Malnutrition consult: Pt reports 2-13 lb wt loss with decreased appetite per malnutrition risk screen with RN. Most recent wt hx in EMR is pt stated wt of 125 kg, current scaled weight is 128 kg. Pt with 100% PO intake on heart healthy diet with 100% PO intake in ED on regular diet. Pt with no documented significant decrease in muscle strength or edema. Pt currently lacks a minimum of two criteria for malnutrition. Will continue to follow. Addendum: 02/01/21 at [address] Amended: Links added.
--- NOTE | 2021-02-01 15:53 | NUR ---
Nursing Progress Note: Legal hold: 5150 Client on voluntary/involuntary status for DTS. Report received from nurse with use of TIMMY Green RN Why are they here: REASON FOR ADMIT: Client presented to ED r/t depression and thoughts of suicide. Client threatened to "cut his throat". Client is , but living separate from spouse. He stated, "I love my apartment." and "My and I are good friends." Reported, "This year sucked. I lost a friend I had since 1961. I can't go back to my group because of Covid." Client denies any hx of SI and has no prior attempts. Clients believe's he has dementia, although he seems to be a good historian and answers questions appropriately. History of heavy ETOH use. Assessment What has happened this shift: Patient was awake at shift changed, Neno allowed 1:1 assesment at bedside. Noamn states he was tricked to be put here, "It was the whiskey talking", that is my problem, I have covered up my life with whiskey. I quite one time for a few months when I was at the [facility], not one drop the whole time. Patient states his life would be so much better if he could quite drinking but he does not know how that could even happen. Patient denies SI/HI. Pateint states that he has an apartment S/I, H/I:Denies A/VH: Denies Sleep:Per NOC 6.0 ADL's:none done today Group attendance:n/a Were meds taken:yes Any med S/E none noted or reported Mental Status Exam Appearance:neat and clean in his own clothes Eye contact:good Behavior:pleasant, social Speech:loud and clear Mood:"well I am ok" Affect:congurent with mood Thought process: intact at times, then forgetful Thought Content:"well it was the Whiskey talking" Cognition:Oreinted x 4, I was tricked to coming here Insight:fair Judgment:poor Interventions PRN's used:Kathleen Therapeutic interventions:therputic enviorment, active listening, medication administration and monitoring, Q 15 mins checks, encourage sleep hygiene and daily ADL's. Restraints/seclusion/emergency medication:N/A Justification of Continued Inpatient Treatment: Patient most recenlty texted with SI to cut throat or end everything ith a gun. Patient needs evaluation and moniotring. Today pateint states "Nothing would be different if I went home, It was the Whiskey talking". Addendum: 02/01/21 at 1628 by Margo Warren RN Patient states he has an apartment, his lives ten mins away and he has two hours a day from the [place] for a helper. "I love living in my apartment and my got me a chidi to keep me company. Patient states his plan is to return to the apartment when he id done here.
[2021-02-01] MEDS: HYDROcodone/acetaminophen 5mg/325mg tablet PO PRN (16:24)
[2021-02-01 19:00] VITALS: BP 117/62
[2021-02-01] MEDS: thiamine 100mg tablet PO SCH (19:38)
[2021-02-01] MEDS: haloperidol 5mg tablet PO SCH (20:09)
[2021-02-01] MEDS ORDERED: gabapentin 300mg capsule PO SCH (21:00)
[2021-02-01] MEDS ORDERED: haloperidol 5mg tablet PO SCH (21:00)
--- NOTE | 2021-02-02 00:05 | NUR ---
Nursing Progress Note: Legal hold: 5150 Client on voluntary/involuntary status for DTS. Report received from nurse with use of Margo WARNER Why are they here: REASON FOR ADMIT: Client presented to ED r/t depression and thoughts of suicide. Client threatened to "cut his throat". Client is , but living separate from spouse. He stated, "I love my apartment." and "My and I are good friends." Reported, "This year sucked. I lost a friend I had since 1961. I can't go back to my group because of Covid." Client denies any hx of SI and has no prior attempts. Clients believe's he has dementia, although he seems to be a good historian and answers questions appropriately. History of heavy ETOH use. Assessment What has happened this shift: Pt was watching baseball in the rec room at shift change. He is friendly and social with other patients and staff, in an appropriate manner. Pt denied any mh symptoms, only complaints of rib pain. Pt is cooperative for all care and assessments and is a generally pleasant ancelmo. Hs meds were accepted without issue. Pt received a breathing tx and went to bed. S/I, H/I:Denies A/VH: Denies Sleep: see sleep assessment ADL's: none done today Group attendance: n/a Were meds taken: yes Any med S/E none noted or reported Mental Status Exam Appearance: neat and clean in his own clothes Eye contact: good Behavior: pleasant, social Speech: loud and clear Mood: "well I am ok" Affect: congruent with mood Thought process: intact at times, then forgetful Thought Content: getting needs met Cognition: Oriented x 4 Insight: fair Judgment: poor Interventions PRN's used: [place] Therapeutic interventions: therapeutic environment, active listening, medication administration and monitoring, Q 15 mins checks, encourage sleep hygiene and daily ADL's. Restraints/seclusion/emergency medication: N/A Justification of Continued Inpatient Treatment: Patient most recently texted with SI to cut throat or end everything with a gun. Patient needs evaluation and monitoring. Today patient states "Nothing would be different if I went home, It was the Whiskey talking".
[2021-02-02] MEDS: albuterol 2.5 MG/3 ML nebule NEB SCH ×4 (02:00→20:05)
[2021-02-02 07:46] VITALS: BP 108/56
[2021-02-02] MEDS ORDERED: cyanocobalamin 500mcg tablet PO SCH (08:00)
[2021-02-02] MEDS: docusate sodium 100mg/10ml UD cup PO SCH (08:00)
[2021-02-02] MEDS: cyanocobalamin 500mcg tablet PO SCH (08:11)
[2021-02-02] MEDS: carvedilol 6.25mg tablet PO SCH ×2 (08:11→20:02)
[2021-02-02] MEDS: atorvastatin 10mg tablet PO SCH (08:11)
[2021-02-02] MEDS: ESCITALOPRAM OXALATE 5 MG TABLET PO SCH (08:11)
[2021-02-02] MEDS: thiamine 100mg tablet PO SCH ×2 (08:11→20:02)
[2021-02-02] MEDS: folic acid 1mg tablet PO SCH (08:11)
[2021-02-02] MEDS: HYDROcodone/acetaminophen 5mg/325mg tablet PO PRN ×2 (08:12→14:04)
[2021-02-02] MEDS: pantoprazole 40mg Tablet.DR PO SCH (08:12)
[2021-02-02] MEDS: cholecalciferol (vitamin D3) 1,000 unit (25mcg) tablet PO SCH (08:12)
[2021-02-02] MEDS: amiodarone 200mg tablet PO SCH (08:12)
[2021-02-02] MEDS: benztropine 1mg tablet PO SCH ×2 (08:12→20:02)
[2021-02-02] MEDS: lisinopril 2.5mg tablet PO SCH (08:13)
[2021-02-02] MEDS: multi-vitamin w/minerals & ferrous gluconate 9 MG/15 ML oral LIQUID PO SCH (08:14)
[2021-02-02 08:33] LABS: ALBUMIN 3.4 G/DL (3.4-5.0); ANION GAP 6 (8-16); BLOOD UREA NITROGEN 13 MG/DL (7-18); CALCIUM 9.4 MG/DL (8.5-10.1); CHLORIDE 97 MMOL/L (99-107); GLUCOSE 112 MG/DL (70-104); MAGNESIUM 1.7 MG/DL (1.5-2.4); POTASSIUM 5.2 MMOL/L (3.5-5.1); SODIUM 134 MMOL/L (135-145); TOTAL CARBON DIOXIDE 30.7 MMOL/L (24-32); eGFR 73 ML/MIN
[2021-02-02 08:37] LABS: PARTIAL THROMBOPLASTIN TIME 28 SECONDS (22-32)
[2021-02-02] MEDS: budesonide 0.5mg/2ml UD nebule IH SCH ×2 (09:31→20:05)
--- NOTE | 2021-02-02 16:31 | NUR ---
Nursing Progress Note: Legal hold: 5150 Client on voluntary/involuntary status for DTS. Report received from nurse with use of TIMMY Green RN Why are they here: REASON FOR ADMIT: Client presented to ED r/t depression and thoughts of suicide. Client threatened to "cut his throat". Client is , but living separate from spouse. He stated, "I love my apartment." and "My and I are good friends." Reported, "This year sucked. I lost a friend I had since 1961. I can't go back to my group because of Covid." Client denies any hx of SI and has no prior attempts. Clients believe's he has dementia, although he seems to be a good historian and answers questions appropriately. History of heavy ETOH use. Assessment What has happened this shift: Patient was awake at shift changed, Neno allowed 1:1 assessment at bedside. "so tell me what is going on with me today, like what is the plan". This customs entry writer explained to Neno that he will be seen by the provider today and that he will be prompted when meal are in the dining room. I explained most likely there will not be a group today, but the TV will be on and that some of the patient like watching baseball. Neno was happy to know that he could watch baseball. Patient did spend some time watching baseball. Neno woke this morning waning to know his [place] schedule, this customs entry writer explained that [place] is prescribed every 8 hours, patient stated that 8 hours apart is too far apart. This customs entry writer told patient that he should bring that up with the provider when he has his interview. Neno seemed to be focused on his [place] most of the day. Patient is up and around with out any assistance using his walker. S/I, H/I:Denies A/VH: Denies Sleep:Per NOC 6.25 ADL's:none done today Group attendance:n/a Were meds taken:yes Any med S/E none noted or reported Mental Status Exam Appearance:neat and clean in his own clothes Eye contact:good Behavior:pleasant, social Speech:loud and clear Mood:"well I am ok" Affect:congruent with mood Thought process: intact at times, then forgetful Thought Content:"well it was the Whiskey talking" Cognition:Oriented x 4, I was tricked to coming here Insight:fair Judgment:poor Interventions PRN's used:[place] x two and a breathing treatment Therapeutic interventions:therapeutic environment, active listening, medication administration and monitoring, Q 15 mins checks, encourage sleep hygiene and daily ADL's. Restraints/seclusion/emergency medication:N/A Justification of Continued Inpatient Treatment: Patient most recently texted with SI to cut throat or end everything with a gun. Patient needs more time on medication to watch for SE and efficacy. Today his plan is to return to the same situation that he came from.
[2021-02-02] MEDS ORDERED: rivaroxaban 20mg tablet PO SCH (18:00)
[2021-02-02] MEDS: haloperidol 5mg tablet PO SCH (20:02)
[2021-02-02 20:05] VITALS: BP 127/81
[2021-02-02] MEDS ORDERED: gabapentin 300mg capsule PO SCH (21:00)
--- NOTE | 2021-02-02 23:53 | NUR ---
Nursing Progress Note: Legal hold: 5150 Client on voluntary/involuntary status for DTS. Report received from nurse with use of Janine WARNER Why are they here: REASON FOR ADMIT: Client presented to ED r/t depression and thoughts of suicide. Client threatened to "cut his throat". Client is , but living separate from spouse. He stated, "I love my apartment." and "My and I are good friends." Reported, "This year sucked. I lost a friend I had since 1961. I can't go back to my group because of Covid." Client denies any hx of SI and has no prior attempts. Clients believe's he has dementia, although he seems to be a good historian and answers questions appropriately. History of heavy ETOH use. Assessment What has happened this shift: Pt was pleasant this evening, very friendly with staff and other pt's. Pt was yelled at by another pt and was a little upset over it but handled it ok. Pt requested a breathing tx before bed and was in bed by 830. hs meds accepted without issue. S/I, H/I:Denies A/VH: Denies Sleep: see sleep assessment ADL's: none done today Group attendance: n/a Were meds taken: yes Any med S/E none noted or reported Mental Status Exam Appearance: neat and clean in his own clothes Eye contact: good Behavior: pleasant, social Speech: loud and clear Mood: "decent" Affect: congruent with mood Thought process: intact at times, then forgetful Thought Content: getting needs met Cognition: Oriented x 4 Insight: fair Judgment: poor Interventions PRN's used: [place] Therapeutic interventions: therapeutic environment, active listening, medication administration and monitoring, Q 15 mins checks, encourage sleep hygiene and daily ADL's. Restraints/seclusion/emergency medication: N/A Justification of Continued Inpatient Treatment: Patient most recently texted with SI to cut throat or end everything with a gun. Patient needs evaluation and monitoring. Today patient states "Nothing would be different if I went home, It was the Whiskey talking".
[2021-02-03] MEDS: albuterol 2.5 MG/3 ML nebule NEB SCH ×3 (02:00→14:59)
[2021-02-03 07:45] VITALS: BP 126/74
[2021-02-03 07:53] VITALS: BP_SYST 126
[2021-02-03] MEDS: amiodarone 200mg tablet PO SCH (07:53)
[2021-02-03] MEDS: benztropine 1mg tablet PO SCH (07:53)
[2021-02-03] MEDS: carvedilol 6.25mg tablet PO SCH (07:53)
[2021-02-03] MEDS: lisinopril 2.5mg tablet PO SCH (07:53)
[2021-02-03] MEDS: cyanocobalamin 500mcg tablet PO SCH (07:53)
[2021-02-03] MEDS: pantoprazole 40mg Tablet.DR PO SCH (07:53)
[2021-02-03] MEDS: folic acid 1mg tablet PO SCH (07:53)
[2021-02-03] MEDS: atorvastatin 10mg tablet PO SCH (07:54)
[2021-02-03] MEDS: thiamine 100mg tablet PO SCH (07:54)
[2021-02-03] MEDS: cholecalciferol (vitamin D3) 1,000 unit (25mcg) tablet PO SCH (07:54)
[2021-02-03] MEDS: ESCITALOPRAM OXALATE 5 MG TABLET PO SCH (07:54)
[2021-02-03] MEDS: docusate sodium 100mg/10ml UD cup PO SCH (07:55)
[2021-02-03] MEDS: multi-vitamin w/minerals & ferrous gluconate 9 MG/15 ML oral LIQUID PO SCH (08:07)
[2021-02-03] MEDS: HYDROcodone/acetaminophen 5mg/325mg tablet PO PRN ×2 (08:38→15:12)
[2021-02-03] MEDS: budesonide 0.5mg/2ml UD nebule IH SCH (08:47)
--- NOTE | 2021-02-03 14:09 | NUR ---
Pt. attended group today. The group today was about Anxiety, they were asked to identify the natural and silent triggers they have experienced. We also discussed panic attacks and how they differ. The second half of group was about what coping skills we can utilize when we are anxious. This Die Mechanic led a Visualization/Breathing technique and also had them scale their anxiety levels for today. Pt's demeanor was calm and pleasant. He was alert and oriented X 4. He engaged appropriately in the group sharing his triggers and coping skills as well as being willing and eager to try the Visualization technique. He reported that he visualized himself on his Pr[place]hjot. He is not allowed to drive it anymore and so it felt great for him to visualize himself riding his bike. He felt that Visualization had a good effect on him and lowered his anxiety today. Bailey Castro, RIVET SPINNER
--- NOTE | 2021-02-03 15:16 | NUR ---
Nursing Progress Note: Legal hold: 5150 Client on voluntary/involuntary status for DTS. Report received from nurse with use of TIMMY Green RN Why are they here: REASON FOR ADMIT: Client presented to ED r/t depression and thoughts of suicide. Client threatened to "cut his throat". Client is , but living separate from spouse. He stated, "I love my apartment." and "My and I are good friends." Reported, "This year sucked. I lost a friend I had since 1961. I can't go back to my group because of Covid." Client denies any hx of SI and has no prior attempts. Clients believe's he has dementia, although he seems to be a good historian and answers questions appropriately. History of heavy ETOH use. Assessment What has happened this shift: Pt pleasant and during one to one denies mh assessment parameters. He states he feels better but is hoping to go home today. "My feelings to hurt myself--that was just the booze. Too much of it." Pt is observed to ambulate the halls with his FWW, alternating between taking naps, chatting with her roommate and watching TV. S/I, H/I:Denies A/VH: Denies Sleep: States he feels like he rested well last night ADL's: Independent Group attendance: N/A Were meds taken: Yes Any med S/E: none noted or reported Mental Status Exam Appearance: Neat and clean in personal clothing Eye contact: Good Behavior: engaging with staff and peers, napping, watching TV Speech Clear, Loud (Pt is [place]) Mood:"Alright" Affect: Congruent to mood with appropriate animation and brightening Thought process: intact at times, then forgetful Thought Content:"well it was the Whiskey talking" Cognition: A&Ox4 Insight:Fair Judgment:Fair Interventions PRN's used:[place] x2 Therapeutic interventions:therapeutic environment, active listening, medication administration and monitoring, Q 15 mins checks, encourage sleep hygiene and daily ADL's. Restraints/seclusion/emergency medication:N/A Justification of Continued Inpatient Treatment: Pt will be discharged today.
[2021-02-03] MEDS ORDERED: gabapentin capsule PO (15:46)
--- NOTE | 2021-02-03 17:08 | NUR ---
Discharge Note: Pt belongings returned to pt. Pt signed all discharge paperwork and verbalized understanding. [facility] Pt is A&Ox4, calm, and denies SI. "I'm ready to go home." Escorted off the unit at 1650 by Lona Jovel. Pt transported home by his .
[2021-02-03] MEDS ORDERED: psyllium seed 3.4 gm packet PO SCH (21:00)
== END 2021-02-03 16:50 | disposition home or self-care (01) | DRG 881 ==
LOC: ADULT MH 19:00
PROVIDERS: ADMIT Psychiatry & Neurology Psychiatry; ATTEND Psychiatry & Neurology Psychiatry
DX: F32.9 Major depressive disorder, single episode, unspecified (principal); I42.9 Cardiomyopathy, unspecified; I48.20 Chronic atrial fibrillation, unspecified; R45.851 Suicidal ideations; E87.1 Hypo-osmolality and hyponatremia; F43.9 Reaction to severe stress, unspecified; E78.5 Hyperlipidemia, unspecified; F03.90 Unspecified dementia, unspecified severity, without behavioral disturbance, psychotic disturbance, mood disturbance, and anxiety; F10.20 Alcohol dependence, uncomplicated; F43.12 Post-traumatic stress disorder, chronic; F95.2 Tourette's disorder; I25.10 Atherosclerotic heart disease of native coronary artery without angina pectoris; I49.5 Sick sinus syndrome; Z96.641 Presence of right artificial hip joint; K21.9 Gastro-esophageal reflux disease without esophagitis; M19.90 Unspecified osteoarthritis, unspecified site; I11.9 Hypertensive heart disease without heart failure; S01.01XA Laceration without foreign body of scalp, initial encounter; W18.2XXA Fall in (into) shower or empty bathtub, initial encounter; E87.5 Hyperkalemia; E66.9 Obesity, unspecified; K59.00 Constipation, unspecified; J44.9 Chronic obstructive pulmonary disease, unspecified; N40.0 Benign prostatic hyperplasia without lower urinary tract symptoms; Z79.01 Long term (current) use of anticoagulants; Z79.51 Long term (current) use of inhaled steroids; I25.2 Old myocardial infarction; Z86.73 Personal history of transient ischemic attack (TIA), and cerebral infarction without residual deficits; Z95.0 Presence of cardiac pacemaker; Z68.35 Body mass index [BMI] 35.0-35.9, adult; Z88.8 Allergy status to other drugs, medicaments and biological substances; Z91.030 Bee allergy status; Y93.E1 Activity, personal bathing and showering; Y92.091 Bathroom in other non-institutional residence as the place of occurrence of the external cause
CPT/HCPCS: 36415; 80048; 80061; 83036; 83735; 85610; 85730; 87081; 94640; 94760; J7626

== ENCOUNTER 2021-04-02 08:30 | Emergency (ER) | payer OTHER, MEDICARE ==
[~2021-04-02] VITALS: Ht 188 cm; Wt 125.5 kg
[~2021-04-02 08:30] MED LIST changes: -VENL150C2 PO; +gabapentin capsule PO
[2021-04-02 08:57] LABS: BASOPHILS % (AUTO) 0.8 % (0-1); EOSINOPHILS # (AUTO) 0.1 X10'3 (0-0.9); EOSINOPHILS % (AUTO) 2.1 % (0-6); HEMATOCRIT 38.3 % (42.0-52.0); HEMOGLOBIN 12.8 g/dl (14.0-17.9); LYMPHOCYTES # (AUTO) 1.1 X10'3 (1.1-4.8); LYMPHOCYTES % (AUTO) 18.1 % (21-51); MEAN CORPUSCULAR HEMOGLOBIN 32.3 PG (27.0-31.0); MEAN CORPUSCULAR HGB CONC 33.6 g/dL (33.0-36.5); MEAN CORPUSCULAR VOLUME 96.2 FL (78-98); MEAN PLATELET VOLUME 5.8 FL (7.4-10.4); MONOCYTES # (AUTO) 0.8 X10'3 (0-0.9); MONOCYTES % (AUTO) 12.1 % (2-12); NEUTROPHILS # (AUTO) 4.2 X10'3 (1.8-7.7); NEUTROPHILS % (AUTO) 66.9 % (42-75); PLATELET COUNT 349 X10'3 (140-440); RED BLOOD COUNT 3.98 X10'6 (4.70-6.10); RED CELL DISTRIBUTION WIDTH 15.2 % (11.5-14.5); WHITE BLOOD COUNT 6.3 X10'3 (4.5-11.0)
[2021-04-02] MEDS ORDERED: acetaminophen 325mg tablet PO ONE (09:20)
[2021-04-02] MEDS ORDERED: HYDROcodone/acetaminophen 5mg/325mg tablet PO ONE (09:20)
[2021-04-02 09:38] LABS: ALANINE AMINOTRANSFERASE 23 U/L (12-78); ALBUMIN 3.7 G/DL (3.4-5.0); ALKALINE PHOSPHATASE 111 IU/L (46-116); CREATININE 1.22 MG/DL (0.60-1.10); MAGNESIUM 1.9 MG/DL (1.5-2.4); TOTAL CARBON DIOXIDE 23.9 MMOL/L (24-32); eGFR 58 ML/MIN
[2021-04-02 09:43] LABS: ALBUMIN/GLOBULIN RATIO 0.9 (1.1-1.5); ASPARTATE AMINO TRANSFERASE 17 U/L (10-37); BILIRUBIN,TOTAL 0.3 MG/DL (0.1-1.0); BLOOD UREA NITROGEN 12 MG/DL (7-18); BUN/CREATININE RATIO 9.8 (5.4-32.0); CALCIUM 8.6 MG/DL (8.5-10.1); GLUCOSE 128 MG/DL (70-104); TOTAL PROTEIN 7.6 G/DL (6.4-8.2)
[2021-04-02 09:53] LABS: ANION GAP 10 (8-16); CHLORIDE 100 MMOL/L (99-107); POTASSIUM 4.2 MMOL/L (3.5-5.1); SODIUM 134 MMOL/L (135-145)
[2021-04-02 12:34] VITALS: BP 137/90
== END 2021-04-02 12:43 | disposition home or self-care (01) ==
LOC: ER 08:31
DX: R07.89 Other chest pain (principal); R06.02 Shortness of breath; I48.91 Unspecified atrial fibrillation; E78.00 Pure hypercholesterolemia, unspecified; I10 Essential (primary) hypertension; I25.2 Old myocardial infarction; J44.9 Chronic obstructive pulmonary disease, unspecified; K21.9 Gastro-esophageal reflux disease without esophagitis; M19.90 Unspecified osteoarthritis, unspecified site; F32.9 Major depressive disorder, single episode, unspecified; Z95.0 Presence of cardiac pacemaker; Z72.89 Other problems related to lifestyle; Z88.8 Allergy status to other drugs, medicaments and biological substances; Z91.030 Bee allergy status; Z79.899 Other long term (current) drug therapy
CPT/HCPCS: 36415; 71045; 80053; 83735; 83880; 84484; 85025; 93005; 99285

== ENCOUNTER 2021-09-17 13:28 | Emergency (ER) | payer OTHER, MEDICARE ==
[~2021-09-17] VITALS: Ht 172.7 cm; Wt 98.0 kg
[~2021-09-17 13:28] MED LIST changes: +LISI2.5T14 PO; -LISI2.5T2 PO
[2021-09-17 13:32] VITALS: BP 113/70
[2021-09-17 13:48] LABS: BASOPHILS # (AUTO) 0.1 X10'3 (0-0.2); BASOPHILS % (AUTO) 1.1 % (0-1); EOSINOPHILS # (AUTO) 0.1 X10'3 (0-0.9); EOSINOPHILS % (AUTO) 1.1 % (0-6); HEMATOCRIT 32.6 % (42.0-52.0); HEMOGLOBIN 11.1 g/dl (14.0-17.9); LYMPHOCYTES # (AUTO) 1.5 X10'3 (1.1-4.8); LYMPHOCYTES % (AUTO) 17.7 % (21-51); MEAN CORPUSCULAR HEMOGLOBIN 31.3 PG (27.0-31.0); MEAN CORPUSCULAR HGB CONC 33.9 g/dL (33.0-36.5); MEAN CORPUSCULAR VOLUME 92.1 FL (78-98); MEAN PLATELET VOLUME 5.9 FL (7.4-10.4); MONOCYTES # (AUTO) 1.1 X10'3 (0-0.9); MONOCYTES % (AUTO) 12.9 % (2-12); NEUTROPHILS # (AUTO) 5.7 X10'3 (1.8-7.7); NEUTROPHILS % (AUTO) 67.2 % (42-75); PLATELET COUNT 307 X10'3 (140-440); RED BLOOD COUNT 3.54 X10'6 (4.70-6.10); WHITE BLOOD COUNT 8.5 X10'3 (4.5-11.0)
[2021-09-17 14:00] LABS: APTT 39 SECONDS (22-32)
[2021-09-17 14:03] LABS: ALANINE AMINOTRANSFERASE 16 U/L (12-78); ALBUMIN 3.5 G/DL (3.4-5.0); ALKALINE PHOSPHATASE 101 IU/L (46-116); ANION GAP 7 (8-16); BLOOD UREA NITROGEN 13 MG/DL (7-18); BUN/CREATININE RATIO 9.4 (5.4-32.0); CHLORIDE 95 MMOL/L (99-107); CREATININE 1.38 MG/DL (0.60-1.10); POTASSIUM 4.4 MMOL/L (3.5-5.1); SODIUM 132 MMOL/L (135-145); TOTAL CARBON DIOXIDE 29.7 MMOL/L (24-32); eGFR 51 ML/MIN
[2021-09-17 14:05] LABS: BILIRUBIN,TOTAL 0.3 MG/DL (0.1-1.0); CALCIUM 8.9 MG/DL (8.5-10.1); GLUCOSE 110 MG/DL (70-104)
[2021-09-17 14:08] LABS: ALBUMIN/GLOBULIN RATIO 0.9 (1.1-1.5); ASPARTATE AMINO TRANSFERASE 18 U/L (10-37); TOTAL PROTEIN 7.5 G/DL (6.4-8.2)
[2021-09-17 14:11] LABS: MAGNESIUM 1.9 MG/DL (1.5-2.4)
== END 2021-09-17 16:27 | disposition home or self-care (01) ==
LOC: ER 13:29
DX: R07.89 Other chest pain (principal); E86.0 Dehydration; N28.9 Disorder of kidney and ureter, unspecified; I48.91 Unspecified atrial fibrillation; E78.00 Pure hypercholesterolemia, unspecified; I10 Essential (primary) hypertension; I25.2 Old myocardial infarction; J44.9 Chronic obstructive pulmonary disease, unspecified; K21.9 Gastro-esophageal reflux disease without esophagitis; M19.90 Unspecified osteoarthritis, unspecified site; F32.9 Major depressive disorder, single episode, unspecified; Z95.0 Presence of cardiac pacemaker; Z72.89 Other problems related to lifestyle; Z91.030 Bee allergy status; Z88.8 Allergy status to other drugs, medicaments and biological substances; Z88.5 Allergy status to narcotic agent; Z79.899 Other long term (current) drug therapy
CPT/HCPCS: 36415; 71045; 80053; 83735; 83880; 84484; 85025; 85610; 85730; 93005; 99285

== ENCOUNTER 2021-11-10 12:38 | Inpatient (IN) | payer OTHER, MEDICARE ==
[~2021-11-10] VITALS: Ht 188 cm; Wt 109.0 kg
[~2021-11-10 12:38] MED LIST changes: -ALBU18HF2 INH; -BENZ1TAB7 PO; +BENZ2TAB7 PO; -BUDE10.22 INH; -CHOL100025 PO; -CYAN-51 PO; -EPIN0.3P3 IM; -HYDR-3964 PO; -PSYL0.5210 PO; +TRAZ-256 PO; +VENL25TA48 PO; -gabapentin capsule PO
[2021-11-10 14:01] LABS: BASOPHILS % (AUTO) 0.4 % (0-1); EOSINOPHILS % (AUTO) 0.2 % (0-6); HEMOGLOBIN 7.1 g/dl (14.0-17.9); LYMPHOCYTES # (AUTO) 1.2 X10'3 (1.1-4.8); LYMPHOCYTES % (AUTO) 10.9 % (21-51); MEAN CORPUSCULAR HEMOGLOBIN 29.9 PG (27.0-31.0); MEAN CORPUSCULAR HGB CONC 34.4 g/dL (33.0-36.5); MEAN CORPUSCULAR VOLUME 86.8 FL (78-98); MEAN PLATELET VOLUME 5.7 FL (7.4-10.4); MONOCYTES # (AUTO) 1.4 X10'3 (0-0.9); MONOCYTES % (AUTO) 13.2 % (2-12); NEUTROPHILS # (AUTO) 8.2 X10'3 (1.8-7.7); NEUTROPHILS % (AUTO) 75.3 % (42-75); PLATELET COUNT 566 X10'3 (140-440); RED BLOOD COUNT 2.37 X10'6 (4.70-6.10); RED CELL DISTRIBUTION WIDTH 16.2 % (11.5-14.5); WHITE BLOOD COUNT 10.9 X10'3 (4.5-11.0)
[2021-11-10 14:11] LABS: HEMATOCRIT 20.5 % (42.0-52.0)
[2021-11-10 14:23] LABS: ALANINE AMINOTRANSFERASE 17 U/L (12-78); ALBUMIN 3.2 G/DL (3.4-5.0); ALKALINE PHOSPHATASE 108 IU/L (46-116); ANION GAP 12 (8-16); BLOOD UREA NITROGEN 15 MG/DL (7-18); CALCIUM 8.3 MG/DL (8.5-10.1); CHLORIDE 87 MMOL/L (99-107); CREATININE 0.94 MG/DL (0.60-1.10); POTASSIUM 3.8 MMOL/L (3.5-5.1); SODIUM 121 MMOL/L (135-145); TOTAL CARBON DIOXIDE 21.9 MMOL/L (24-32); eGFR 79 ML/MIN
[2021-11-10 14:27] LABS: ALBUMIN/GLOBULIN RATIO 1.1 (1.1-1.5); ASPARTATE AMINO TRANSFERASE 26 U/L (10-37); BILIRUBIN,TOTAL 0.9 MG/DL (0.1-1.0); GLUCOSE 84 MG/DL (70-104); TOTAL PROTEIN 6.2 G/DL (6.4-8.2)
[2021-11-10] MEDS ORDERED: PANT-47 PO (14:45)
[2021-11-10] MEDS ORDERED: TRAZ-256 PO (14:45)
[2021-11-10] MEDS ORDERED: VENL25TA48 PO (14:45)
[2021-11-10] MEDS ORDERED: ESCI20TA39 PO (14:45)
[2021-11-10] MEDS ORDERED: LISI2.5T14 PO (14:45)
[2021-11-10] MEDS ORDERED: THIA100T70 PO (14:45)
[2021-11-10] MEDS ORDERED: RIVA20TA PO (14:45)
[2021-11-10] MEDS ORDERED: ATOR10TA70 PO (14:45)
[2021-11-10] MEDS ORDERED: HALO5TAB PO (14:45)
[2021-11-10] MEDS ORDERED: CARV6.252 PO (14:45)
[2021-11-10] MEDS ORDERED: AMIO200T61 PO (14:45)
[2021-11-10] MEDS ORDERED: DOCU250C71 PO (14:45)
[2021-11-10] MEDS ORDERED: BENZ2TAB7 PO (14:45)
[2021-11-10] MEDS ORDERED: normal saline 1000ML IV soln IVB ONE (15:25)
[2021-11-10] MEDS ORDERED: ROPIVAcaine 0.5% (5mg/ml) 30ml vial ONE (15:54)
[2021-11-10] MEDS ORDERED: ondansetron/PF 4mg/2ml inj IV PRN (16:40)
[2021-11-10] MEDS ORDERED: acetaminophen 325mg tablet PO PRN ×2 (16:40)
[2021-11-10] MEDS ORDERED: magnesium 2GM in 50ml NS 50 ML IV PRN (16:40)
[2021-11-10] MEDS ORDERED: acetaminophen 650mg rectal suppository RC PRN (16:40)
[2021-11-10] MEDS ORDERED: HYDROmorphone/PF 0.2 MG/ML SYRINGE IV PRN (16:40)
[2021-11-10] MEDS ORDERED: bisacodyl 10mg suppository rectal RC PRN (16:40)
[2021-11-10] MEDS ORDERED: potassium CL 10mEq/100ml bag 100 ML IV PRN (16:40)
[2021-11-10] MEDS ORDERED: mag hydrox/Alum hydrox/simeth 30ml oral suspension PO PRN (16:40)
[2021-11-10] MEDS ORDERED: magnesium hydroxide 30ml (MOM) UD suspension PO PRN (16:40)
[2021-11-10] MEDS ORDERED: magnesium 4gm in 100ml NS 100 ML IV PRN (16:40)
[2021-11-10] MEDS ORDERED: potassium Cl 20 mEq SR tablet PO PRN ×2 (16:40)
[2021-11-10] MEDS ORDERED: diphenhydrAMINE 25mg capsule PO PRN (16:40)
[2021-11-10] MEDS ORDERED: magnesium Cl slow-release 64mg tablet PO PRN (16:40)
[2021-11-10 19:00] VITALS: BP 132/78
--- NOTE | 2021-11-10 19:00 | NUR ---
Patient in room . I have received report from ALISTAIR RIDER RN and had the opportunity to ask questions and assume patient care.
[2021-11-10] MEDS: K and/or MAG REPLACEMENT MC SCH (20:00)
[2021-11-10] MEDS: traZODone 50mg tablet PO SCH (21:11)
[2021-11-10] MEDS: docusate sod 100mg capsule PO SCH (21:12)
[2021-11-10] MEDS: haloperidol 5mg tablet PO SCH (21:12)
[2021-11-10] MEDS: carvedilol 6.25mg tablet PO SCH (21:13)
[2021-11-10] MEDS: heparin, porcine 5000 units/ml vial SQ SCH (21:25)
[2021-11-10] MEDS: HYDROmorphone inj. 0.5 MG/0.5 ML DISP.SYRIN IV PRN (21:26)
[2021-11-10 22:00] VITALS: BP 104/51
[2021-11-11] VITALS (26 sets, daily range): BP systolic 90–166; BP diastolic 36–89
[2021-11-11] MEDS: benztropine 1mg tablet PO SCH ×3 (01:09→20:00)
--- NOTE | 2021-11-11 01:20 | NUR ---
BT started at 0103. VS stable; pt tolerated it well. Awaiting on H&H results.
[2021-11-11] MEDS: HYDROmorphone inj. 0.5 MG/0.5 ML DISP.SYRIN IV PRN (04:42)
[2021-11-11] MEDS: normal saline 1000ml 1,000 ML IV SCH ×2 (06:00→19:20)
--- NOTE | 2021-11-11 06:21 | NUR ---
Problems reprioritized. Patient report given, questions answered & plan of care reviewed with Juliette HILLS.
--- NOTE | 2021-11-11 06:30 | NUR ---
Patient in room PCU 3016. I have received report from Fern HILLS and had the opportunity to ask questions and assume patient care.
[2021-11-11 07:28] LABS: BASOPHILS % (AUTO) 0.4 % (0-1); EOSINOPHILS % (AUTO) 0.6 % (0-6); HEMATOCRIT 24.7 % (42.0-52.0); HEMOGLOBIN 8.3 g/dl (14.0-17.9); LYMPHOCYTES # (AUTO) 0.9 X10'3 (1.1-4.8); MEAN CORPUSCULAR HGB CONC 33.7 g/dL (33.0-36.5); MONOCYTES # (AUTO) 0.9 X10'3 (0-0.9); MONOCYTES % (AUTO) 11.6 % (2-12); NEUTROPHILS # (AUTO) 6.1 X10'3 (1.8-7.7); NEUTROPHILS % (AUTO) 76.4 % (42-75); PLATELET COUNT 534 X10'3 (140-440); RED BLOOD COUNT 2.78 X10'6 (4.70-6.10); RED CELL DISTRIBUTION WIDTH 16.5 % (11.5-14.5)
[2021-11-11 07:43] LABS: ALANINE AMINOTRANSFERASE 20 U/L (12-78); ALBUMIN 3.2 G/DL (3.4-5.0); ALKALINE PHOSPHATASE 116 IU/L (46-116); ANION GAP 12 (8-16); BLOOD UREA NITROGEN 11 MG/DL (7-18); BUN/CREATININE RATIO 15.7 (5.4-32.0); CALCIUM 8.6 MG/DL (8.5-10.1); CHLORIDE 91 MMOL/L (99-107); MAGNESIUM 1.7 MG/DL (1.5-2.4); SODIUM 126 MMOL/L (135-145); eGFR > 90 ML/MIN
[2021-11-11 07:46] LABS: ALBUMIN/GLOBULIN RATIO 0.9 (1.1-1.5); ASPARTATE AMINO TRANSFERASE 33 U/L (10-37); BILIRUBIN,TOTAL 1.3 MG/DL (0.1-1.0); GLUCOSE 102 MG/DL (70-104); PHOSPHORUS 3.6 MG/DL (2.3-4.5); POTASSIUM 4.1 MMOL/L (3.5-5.1); TOTAL PROTEIN 6.6 G/DL (6.4-8.2)
--- NOTE | 2021-11-11 07:47 | NUR ---
Spoke with Surgeon this morning, pending H and H, patient will go to surgery. H&H was 8.3 and 24.7. Surgeon wants to hang the other unit that ready prior to surgery.
[2021-11-11] MEDS: heparin, porcine 5000 units/ml vial SQ SCH ×2 (08:00→20:00)
[2021-11-11] MEDS: docusate sod 100mg capsule PO SCH ×2 (08:00→20:00)
[2021-11-11] MEDS: atorvastatin 10mg tablet PO SCH (08:00)
[2021-11-11] MEDS: amiodarone 200mg tablet PO SCH (08:13)
[2021-11-11] MEDS: ESCITALOPRAM OXALATE 5 MG TABLET PO SCH (08:14)
[2021-11-11] MEDS: carvedilol 6.25mg tablet PO SCH ×2 (08:14→20:00)
[2021-11-11] MEDS: pantoprazole 40mg Tablet.DR PO SCH (08:15)
[2021-11-11] MEDS: thiamine 100mg tablet PO SCH (08:15)
[2021-11-11] MEDS: venlafaxine 25mg tablet PO SCH (08:15)
[2021-11-11] MEDS: docusate sod 250mg capsule PO SCH (08:16)
[2021-11-11] MEDS: lisinopril 2.5mg tablet PO SCH (08:16)
[2021-11-11] MEDS: K and/or MAG REPLACEMENT MC SCH ×2 (09:26→20:00)
--- NOTE | 2021-11-11 12:54 | NUR ---
Page Accepted Message: Room 3010G: Neno Deras: Pt has a sore throat, can I get some cough drops for him? Currently NPO for surgery. [place] [phone]
[2021-11-11] MEDS ORDERED: ROPIVAcaine 0.5% (5mg/ml) 30ml vial ONE ×2 (14:40→17:05)
[2021-11-11] MEDS ORDERED: ketorolac trometh. 30mg/ml inj. ONE (14:40)
[2021-11-11 15:04] LABS: ISTAT ANION GAP 10 (8-12); ISTAT BUN 7 mg/dL (7-18); ISTAT CL 92 mmol/L (99-107); ISTAT CREATININE 0.7 mg/dL (0.8-1.3); ISTAT GLUCOSE 101 mg/dL (70-105); ISTAT HGB 8.8 g/dl (14.0-18.0); ISTAT Hct 26 %PCV (42-52); ISTAT IONIZED CALCIUM 1.07 mmol/L (1.03-1.32); ISTAT K 3.7 mmol/L (3.5-5.1); ISTAT NA 128 mmol/L (135-145); ISTAT TOTAL CO2 26 mmol/L (24-32); ISTAT eGFR > 90 ML/MIN
[2021-11-11] MEDS ORDERED: fentaNYL /PF 50mcg/ml 5ml ampule ONE (15:30)
[2021-11-11] MEDS ORDERED: cloNIDine hcl/PF 100mcg/ml inj ONE (15:48)
[2021-11-11] MEDS ORDERED: ondansetron 4mg rapidly disintigrating tab PO PRN (16:05)
[2021-11-11] MEDS ORDERED: propofol inj 20 ML IV ONE (17:05)
[2021-11-11] MEDS ORDERED: fentaNYL/PF 50MCG/1 ML 2ML syringe IV PRN ×2 (17:05)
[2021-11-11] MEDS ORDERED: dexamethasone sod phosphate 4mg/ml inj. ONE (17:05)
[2021-11-11] MEDS ORDERED: ringers solution, lacted 1,000 ML IV SCH (17:05)
[2021-11-11] MEDS ORDERED: ondansetron/PF 4mg/2ml inj ONE (17:05)
[2021-11-11] MEDS ORDERED: glycopyrrolate 0.2mg/ml inj ONE (17:05)
[2021-11-11] MEDS ORDERED: ondansetron/PF 4mg/2ml inj IV PRN ×2 (17:05→17:45)
[2021-11-11] MEDS ORDERED: neostigmine methylsulfate 1 MG/ML 10ml vial ONE (17:05)
[2021-11-11] MEDS ORDERED: rocuronium 10mg/ml inj IV ONE (17:05)
[2021-11-11] MEDS ORDERED: LIDOcaine 1%/PF 5ML 10 MG/ML VIAL ONE (17:05)
[2021-11-11] MEDS ORDERED: HYDROmorphone/PF 0.2 MG/ML SYRINGE IV PRN ×2 (17:05)
[2021-11-11] MEDS ORDERED: ROPIVAcaine 0.5% (5mg/ml) 30ml vial IJ ONE (17:30)
[2021-11-11] MEDS ORDERED: magnesium hydroxide 30ml (MOM) UD suspension PO PRN (17:45)
[2021-11-11] MEDS ORDERED: diphenhydrAMINE 25mg capsule PO PRN ×2 (17:45)
[2021-11-11] MEDS ORDERED: oxyCODONE IR 5mg (immed. release) tablet PO PRN ×2 (17:45)
[2021-11-11] MEDS ORDERED: potassium cl 20mEq in 1/2 NS 1,000 ML IV SCH (17:45)
[2021-11-11] MEDS ORDERED: acetaminophen 325mg tablet PO PRN (17:45)
[2021-11-11] MEDS ORDERED: bisacodyl 10mg suppository rectal RC PRN (17:45)
--- NOTE | 2021-11-11 17:57 | NUR ---
Received from OR via , accompanied by Anesthesiologist DR FRANCO and report given by Anesthesiolgist. AWAKENS TO VOICE. VITALS STABLE. DRESSING DI. AMI PAIN.RUE IN A SIMPLE SLING.
[2021-11-11 18:09] LABS: ISTAT ANION GAP 9 (8-12); ISTAT BUN 7 mg/dL (7-18); ISTAT CL 96 mmol/L (99-107); ISTAT CREATININE 0.7 mg/dL (0.8-1.3); ISTAT GLUCOSE 105 mg/dL (70-105); ISTAT HGB 7.8 g/dl (14.0-18.0); ISTAT Hct 23 %PCV (42-52); ISTAT IONIZED CALCIUM 1.07 mmol/L (1.03-1.32); ISTAT NA 130 mmol/L (135-145); ISTAT TOTAL CO2 25 mmol/L (24-32); ISTAT eGFR > 90 ML/MIN
--- NOTE | 2021-11-11 18:22 | NUR ---
Problems reprioritized. Patient report given, questions answered & plan of care reviewed with Fern HILLS.
--- NOTE | 2021-11-11 18:55 | NUR ---
Patient in room PCU 3016. I have received report from SHAHRIAR HILLS and had the opportunity to ask questions and assume patient care.
--- NOTE | 2021-11-11 18:57 | NUR ---
Report called to receiving nurse. Transferred via BED Belongings . Special Issues communicated to receiving nurse.AWAKE AND ORIENTED. VITALS STABLE. DRESSING DI. AMI PAIN. RECIEVING 1 UNIT OF PBC WITHOUT INCIDENT. TO U RM 3010L AT THIS TIME.
--- NOTE | 2021-11-11 19:10 | NUR ---
received pt from surgery, restless yet oriented. VS stable with BP= 104/56, O2 at 98, HR @ 64.
[2021-11-11] MEDS ORDERED: VANCOMYCIN 1GM/200ML IVPB 200 ML IV SCH (20:00)
[2021-11-11] MEDS: traZODone 50mg tablet PO SCH (21:00)
[2021-11-11] MEDS: haloperidol 5mg tablet PO SCH (21:00)
[2021-11-11] MEDS ORDERED: sennosides 8.6mg tablet PO SCH (21:00)
[2021-11-11 23:29] LABS: BASOPHILS % (AUTO) 0.3 % (0-1); EOSINOPHILS % (AUTO) 0.1 % (0-6); HEMOGLOBIN 8.9 g/dl (14.0-17.9); LYMPHOCYTES # (AUTO) 0.4 X10'3 (1.1-4.8); LYMPHOCYTES % (AUTO) 4.7 % (21-51); MEAN CORPUSCULAR HEMOGLOBIN 30.7 PG (27.0-31.0); MEAN CORPUSCULAR VOLUME 90.3 FL (78-98); MEAN PLATELET VOLUME 5.5 FL (7.4-10.4); MONOCYTES # (AUTO) 0.7 X10'3 (0-0.9); MONOCYTES % (AUTO) 8.4 % (2-12); NEUTROPHILS # (AUTO) 7.2 X10'3 (1.8-7.7); NEUTROPHILS % (AUTO) 86.5 % (42-75); PLATELET COUNT 455 X10'3 (140-440); RED BLOOD COUNT 2.88 X10'6 (4.70-6.10); RED CELL DISTRIBUTION WIDTH 16.1 % (11.5-14.5); WHITE BLOOD COUNT 8.4 X10'3 (4.5-11.0)
[2021-11-12] MEDS: ceFAZolin/D5W- 1GM premix 50 ML IV SCH ×2 (00:25→07:56)
[2021-11-12 01:56] LABS: TOTAL CELLS COUNTED 100
[2021-11-12 01:57] LABS: ANISOCYTOSIS 1+; PLATELET ESTIMATE INCREASED
[2021-11-12 01:58] LABS: BURR CELLS FEW; ELLIPTOCYTES FEW; POLYCHROMASIA FEW
[2021-11-12 02:00] VITALS: BP 143/79
[2021-11-12 02:45] VITALS: BP 143/79
[2021-11-12 06:00] VITALS: BP 123/67
--- NOTE | 2021-11-12 06:30 | NUR ---
Patient in room PCU 3016. I have received report from Fern HILLS and had the opportunity to ask questions and assume patient care.
[2021-11-12 06:36] LABS: BASOPHILS % (AUTO) 0.2 % (0-1); EOSINOPHILS % (AUTO) 0 % (0-6); HEMATOCRIT 24.9 % (42.0-52.0); HEMOGLOBIN 8.4 g/dl (14.0-17.9); LYMPHOCYTES # (AUTO) 0.7 X10'3 (1.1-4.8); LYMPHOCYTES % (AUTO) 8.3 % (21-51); MEAN CORPUSCULAR HEMOGLOBIN 30.1 PG (27.0-31.0); MEAN CORPUSCULAR HGB CONC 33.7 g/dL (33.0-36.5); MEAN CORPUSCULAR VOLUME 89.4 FL (78-98); MEAN PLATELET VOLUME 5.5 FL (7.4-10.4); MONOCYTES # (AUTO) 0.9 X10'3 (0-0.9); MONOCYTES % (AUTO) 10.3 % (2-12); NEUTROPHILS # (AUTO) 7.2 X10'3 (1.8-7.7); NEUTROPHILS % (AUTO) 81.2 % (42-75); PLATELET COUNT 469 X10'3 (140-440); RED BLOOD COUNT 2.79 X10'6 (4.70-6.10); RED CELL DISTRIBUTION WIDTH 16.5 % (11.5-14.5); WHITE BLOOD COUNT 8.8 X10'3 (4.5-11.0)
--- NOTE | 2021-11-12 06:36 | NUR ---
Problems reprioritized. Patient report given, questions answered & plan of care reviewed with Juliette HILLS.
[2021-11-12 06:45] VITALS: BP 123/67
[2021-11-12 07:09] LABS: ALANINE AMINOTRANSFERASE 18 U/L (12-78); ALKALINE PHOSPHATASE 101 IU/L (46-116); ANION GAP 9 (8-16); BLOOD UREA NITROGEN 8 MG/DL (7-18); BUN/CREATININE RATIO 10.4 (5.4-32.0); CALCIUM 8.4 MG/DL (8.5-10.1); CHLORIDE 98 MMOL/L (99-107); CREATININE 0.77 MG/DL (0.60-1.10); MAGNESIUM 1.9 MG/DL (1.5-2.4); POTASSIUM 4.6 MMOL/L (3.5-5.1); SODIUM 133 MMOL/L (135-145); TOTAL CARBON DIOXIDE 25.7 MMOL/L (24-32); eGFR > 90 ML/MIN
[2021-11-12 07:11] LABS: ASPARTATE AMINO TRANSFERASE 21 U/L (10-37); BILIRUBIN,TOTAL 0.8 MG/DL (0.1-1.0); GLUCOSE 133 MG/DL (70-104); PHOSPHORUS 3.5 MG/DL (2.3-4.5); TOTAL PROTEIN 5.9 G/DL (6.4-8.2)
[2021-11-12 07:16] LABS: PLATELET ESTIMATE INCREASED
[2021-11-12 07:17] LABS: ANISOCYTOSIS 1+; BURR CELLS FEW; LARGE PLATELETS FEW
[2021-11-12] MEDS: lisinopril 2.5mg tablet PO SCH (07:49)
[2021-11-12] MEDS: amiodarone 200mg tablet PO SCH (07:50)
[2021-11-12] MEDS: thiamine 100mg tablet PO SCH (07:50)
[2021-11-12] MEDS: docusate sod 250mg capsule PO SCH (07:50)
[2021-11-12] MEDS: ESCITALOPRAM OXALATE 5 MG TABLET PO SCH (07:50)
[2021-11-12] MEDS: docusate sod 100mg capsule PO SCH (07:50)
[2021-11-12] MEDS: venlafaxine 25mg tablet PO SCH (07:50)
[2021-11-12] MEDS: pantoprazole 40mg Tablet.DR PO SCH (07:51)
[2021-11-12] MEDS: benztropine 1mg tablet PO SCH (07:51)
[2021-11-12] MEDS: atorvastatin 10mg tablet PO SCH (07:51)
[2021-11-12] MEDS: carvedilol 6.25mg tablet PO SCH (07:51)
[2021-11-12] MEDS: heparin, porcine 5000 units/ml vial SQ SCH (07:52)
[2021-11-12] MEDS: K and/or MAG REPLACEMENT MC SCH (08:00)
[2021-11-12] MEDS: normal saline 1000ml 1,000 ML IV SCH (08:52)
--- NOTE | 2021-11-12 08:58 | NUR ---
Page Accepted Message: Room 0599Z: Neno Deras: Pt is complaining of a sore throat, can he have some cough drops? [place] [phone]
[2021-11-12 10:45] VITALS: BP 145/71
[2021-11-12] MEDS: benzocaine/menthol oral lozeng 1 EACH BOX MM PRN ×2 (10:57→13:48)
[2021-11-12 11:00] VITALS: BP 145/71
--- NOTE | 2021-11-12 13:59 | NUR ---
Transport came and picked up patient. PIV removed and telemetry discontinued. All belongings gathered and taken with him to [facility]. Report called into Nayely Bryan and all questions addressed.
== END 2021-11-12 14:47 | DRG 483 ==
LOC: ER 12:38 → ED HOLD 16:46 → PCU 3S 21:11
PROVIDERS: ADMIT Family Medicine; ATTEND Family Medicine
PROC: 30233N1 Transfusion of Nonautologous Red Blood Cells into Peripheral Vein, Percutaneous Approach (ICD-10-PCS; 2021-11-11)
PROC: 3E0T3BZ Introduction of Anesthetic Agent into Peripheral Nerves and Plexi, Percutaneous Approach (ICD-10-PCS; 2021-11-11)
PROC: 3E0T33Z Introduction of Anti-inflammatory into Peripheral Nerves and Plexi, Percutaneous Approach (ICD-10-PCS; 2021-11-11)
PROC: 0RRJ00Z Replacement of Right Shoulder Joint with Reverse Ball and Socket Synthetic Substitute, Open Approach (ICD-10-PCS; principal; 2021-11-11 15:24)
DX: M97.31XA Periprosthetic fracture around internal prosthetic right shoulder joint, initial encounter (principal); E87.1 Hypo-osmolality and hyponatremia; I42.9 Cardiomyopathy, unspecified; I48.20 Chronic atrial fibrillation, unspecified; Z20.822 Contact with and (suspected) exposure to COVID-19; D64.9 Anemia, unspecified; I50.9 Heart failure, unspecified; J44.9 Chronic obstructive pulmonary disease, unspecified; N40.0 Benign prostatic hyperplasia without lower urinary tract symptoms; W18.39XA Other fall on same level, initial encounter; Z96.611 Presence of right artificial shoulder joint; F32.A Depression, unspecified; F10.10 Alcohol abuse, uncomplicated; K21.9 Gastro-esophageal reflux disease without esophagitis; Z60.2 Problems related to living alone; E78.00 Pure hypercholesterolemia, unspecified; E78.5 Hyperlipidemia, unspecified; F03.90 Unspecified dementia, unspecified severity, without behavioral disturbance, psychotic disturbance, mood disturbance, and anxiety; I11.0 Hypertensive heart disease with heart failure; I25.2 Old myocardial infarction; Z79.01 Long term (current) use of anticoagulants; Z87.891 Personal history of nicotine dependence; Z95.810 Presence of automatic (implantable) cardiac defibrillator; Y93.89 Activity, other specified; Y92.89 Other specified places as the place of occurrence of the external cause; Y99.8 Other external cause status; Z88.8 Allergy status to other drugs, medicaments and biological substances; Z91.030 Bee allergy status
CPT/HCPCS: 36415; 36430; 71045; 73020; 73030; 80047; 80053; 83735; 84100; 84439; 84443; 85007; 85008; 85025; 85610; 86885; 86900; 86901; 86920; 87081; 87635; 93005; 96360; 97161; 97530; 99285; C9803; G0378; J0690; J0735; J1100; J1170; J1644; J1885; J2405; J2704; J2710; J2795; J3010; J3370; J3490; J7030; J7120; P9016

== ENCOUNTER 2021-11-13 16:04 | Emergency (ER) | payer OTHER, MEDICARE ==
[~2021-11-13] VITALS: Ht 188 cm; Wt 114.5 kg
[2021-11-13 16:09] VITALS: BP 118/62
--- NOTE | 2021-11-13 16:30 | NUR ---
wound assessed by md and rn. small amt of bleeding noted from incision. surgicell placed on wound wtih pressure dressing. will monitor for bleeding.
--- NOTE | 2021-11-13 16:45 | NUR ---
[facility] called regarding pt status and poc. will transport pt home via [facility]
--- NOTE | 2021-11-13 17:55 | NUR ---
wound dresing remains clean, dry and intact.
== END 2021-11-13 18:01 | disposition home or self-care (01) ==
LOC: ER 16:05
DX: M96.830 Postprocedural hemorrhage of a musculoskeletal structure following a musculoskeletal system procedure (principal); F03.91 Unspecified dementia, unspecified severity, with behavioral disturbance; I48.91 Unspecified atrial fibrillation; E78.00 Pure hypercholesterolemia, unspecified; I10 Essential (primary) hypertension; I25.2 Old myocardial infarction; J44.9 Chronic obstructive pulmonary disease, unspecified; K21.9 Gastro-esophageal reflux disease without esophagitis; N40.0 Benign prostatic hyperplasia without lower urinary tract symptoms; M19.90 Unspecified osteoarthritis, unspecified site; Z72.89 Other problems related to lifestyle; Z95.0 Presence of cardiac pacemaker; Z79.899 Other long term (current) drug therapy; Z88.5 Allergy status to narcotic agent; Z91.030 Bee allergy status; Z88.8 Allergy status to other drugs, medicaments and biological substances; Y83.8 Other surgical procedures as the cause of abnormal reaction of the patient, or of later complication, without mention of misadventure at the time of the procedure; Y79.3 Surgical instruments, materials and orthopedic devices (including sutures) associated with adverse incidents
CPT/HCPCS: 99284

== ENCOUNTER 2021-11-23 11:59 | Emergency (ER) | payer OTHER, MEDICARE ==
[~2021-11-23] VITALS: Ht 188 cm; Wt 106.8 kg
[2021-11-23 12:14] VITALS: BP 108/62
--- NOTE | 2021-11-23 12:40 | NUR ---
pt stood use urinal with standby assitance, steady gait.
--- NOTE | 2021-11-23 13:00 | NUR ---
dr. thorpe at bedside.
[2021-11-23] MEDS ORDERED: acetaminophen 325mg tablet PO ONE (13:05)
[2021-11-23 13:39] LABS: BASOPHILS # (AUTO) 0.1 X10'3 (0-0.2); BASOPHILS % (AUTO) 0.7 % (0-1); EOSINOPHILS # (AUTO) 0.2 X10'3 (0-0.9); HEMATOCRIT 27.4 % (42.0-52.0); LYMPHOCYTES # (AUTO) 1.1 X10'3 (1.1-4.8); LYMPHOCYTES % (AUTO) 13.8 % (21-51); MEAN CORPUSCULAR HGB CONC 32.7 g/dL (33.0-36.5); MEAN CORPUSCULAR VOLUME 88.8 FL (78-98); MEAN PLATELET VOLUME 5.6 FL (7.4-10.4); MONOCYTES # (AUTO) 0.8 X10'3 (0-0.9); NEUTROPHILS # (AUTO) 5.8 X10'3 (1.8-7.7); NEUTROPHILS % (AUTO) 73.5 % (42-75); PLATELET COUNT 540 X10'3 (140-440); RED BLOOD COUNT 3.09 X10'6 (4.70-6.10); RED CELL DISTRIBUTION WIDTH 16.8 % (11.5-14.5); WHITE BLOOD COUNT 7.9 X10'3 (4.5-11.0)
[2021-11-23 13:45] LABS: ALANINE AMINOTRANSFERASE 11 U/L (12-78); ALKALINE PHOSPHATASE 108 IU/L (46-116); ANION GAP 9 (8-16); BLOOD UREA NITROGEN 14 MG/DL (7-18); BUN/CREATININE RATIO 16.7 (5.4-32.0); CALCIUM 9.3 MG/DL (8.5-10.1); CHLORIDE 95 MMOL/L (99-107); CREATININE 0.84 MG/DL (0.60-1.10); POTASSIUM 4.8 MMOL/L (3.5-5.1); SODIUM 132 MMOL/L (135-145); TOTAL CARBON DIOXIDE 27.7 MMOL/L (24-32); eGFR 90 ML/MIN
[2021-11-23 13:47] LABS: ALBUMIN/GLOBULIN RATIO 0.7 (1.1-1.5); ASPARTATE AMINO TRANSFERASE 13 U/L (10-37); BILIRUBIN,TOTAL 0.4 MG/DL (0.1-1.0); GLUCOSE 98 MG/DL (70-104); TOTAL PROTEIN 7.4 G/DL (6.4-8.2)
[2021-11-23] MEDS ORDERED: SULF1TAB49 PO (13:50)
[2021-11-23] MEDS ORDERED: sulfamethoxazole/trimethoprim DS (800/160mg) tablet PO ONE (13:55)
[2021-11-23] MEDS ORDERED: prednisone 10mg tablet PO ONE (13:55)
[2021-11-23] MEDS ORDERED: predniSONE 20 mg tablet PO ONE (14:05)
--- NOTE | 2021-11-23 17:00 | NUR ---
[facility] called stating that they wouldn't be here till 1814 to get patient. Faxed a diet order down to dietary, patient aware of new time and meal tray order.
== END 2021-11-23 18:54 | disposition home or self-care (01) ==
LOC: ER 11:59
DX: L03.114 Cellulitis of left upper limb (principal); M79.642 Pain in left hand; I48.91 Unspecified atrial fibrillation; E78.00 Pure hypercholesterolemia, unspecified; I10 Essential (primary) hypertension; I25.2 Old myocardial infarction; J43.9 Emphysema, unspecified; K21.9 Gastro-esophageal reflux disease without esophagitis; M19.90 Unspecified osteoarthritis, unspecified site; F32.A Depression, unspecified; F17.200 Nicotine dependence, unspecified, uncomplicated; Z95.0 Presence of cardiac pacemaker; Z72.89 Other problems related to lifestyle; Z91.030 Bee allergy status; Z88.8 Allergy status to other drugs, medicaments and biological substances; Z88.5 Allergy status to narcotic agent; Z79.899 Other long term (current) drug therapy
CPT/HCPCS: 29125; 36415; 80053; 83605; 84145; 84550; 85025; 87040; 99284; J7512